=== PATIENT | male | born 1945 | race Hispanic/Latino ===

== ENCOUNTER 2018-04-15 11:37 | Emergency (ER) | payer OTHER ==
[~2018-04-15] VITALS: Ht 172.7 cm; Wt 83.5 kg
[~2018-04-15 11:37] MED LIST: KEFLEX500 MG PO; LISINOPRIL PO; METFORMIN PO; MULTI-VITAMIN1 EACH PO; NORCO 7.5-3251 EACH PO; TYLENOL WITH C1 EACH PO
[2018-04-15 14:26] VITALS: BP 167/78
== END 2018-04-15 14:30 | disposition home or self-care (01) ==
LOC: ER 11:37
DX: B02.9 Zoster without complications (principal); B02.29 Other postherpetic nervous system involvement
CPT/HCPCS: 99282

== ENCOUNTER 2020-06-06 08:32 | Inpatient (IN) | payer OTHER ==
[~2020-06-06] VITALS: Ht 170.2 cm; Wt 85.7 kg
[2020-06-06] MEDS ORDERED: PIPERACILLIN/TAZO 4.5 GM 100 ML IV STA (08:39)
--- NOTE | 2020-06-06 08:43 | Emergency Department Note ---
History of Present Illnes History of Present Illness Chief Complaint: COVID PUI History of Present Illness This is a 75 year old male presents to the ED for SOB and low BP per daughter of 2 days duration. . Arrival Mode: Car History limited by: language barrier Websphere Consultant Required: Yes Onset (how long ago): day(s) (2) Duration (how long): day(s) Timing of current episode: constant Progression: worsening Chronicity: new Context: Reports recent illness Relieving factors: other Exacerbating factors: other Associated symptoms: Reports shortness of breath, Reports weakness, Reports other Treatments prior to arrival: none Previous service: tests performed, re-evaluation Past Medical/Family History Physician Review I have reviewed the patient's past medical and family history. Any updates have been documented here. Past Medical History Clinical Suspicion of Infectio: Yes New/Unexplained Change in Ment: No Past Medical History: None Past Surgical History: Hernia Repair Other Surgery: Hernia Repair Social History Smoking Cessation: Never Smoker Alcohol Use: None Any Illegal Drug Use: No Other Last Tetanus: UNK Review of Systems ROS Narrative Unable to obtain ROS: critical patient Review of Systems Constitutional: Reports weakness EENTM: Reports no symptoms Cardiovascular: Reports no symptoms Respiratory: Reports dyspnea Gastrointestinal: Reports no symptoms Genitourinary: Reports no symptoms Musculoskeletal: Reports no symptoms Integumentary: Reports no symptoms Neurological: Reports no symptoms Psychological: Reports no symptoms Endocrine: Reports no symptoms Hematological/Lymphatic: Reports no symptoms Physical Exam Related Data Allergies: Coded Allergies: naloxegol (Verified Allergy, Unknown, 06/06/20) rash/hives Vital signs reviewed: Yes Physical Exam CONSTITUTIONAL Constitutional: Present distressed, Present ill appearing HENT HENT: Present normocephalic, Present atraumatic, Present oropharynx clear/moist, Present nose normal HENT L/R: Present left ext ear normal, Present right ext ear normal EYES Eyes: Reports PERRL, Reports conjunctivae normal NECK Neck: Present ROM normal PULMONARY Pulmonary: Present other (decreased BS b/l, tachypnea) CARDIOVASCULAR Cardiovascular: Present heart sounds normal, Present capillary refill normal, Present normal rate, Present tachycardia GASTROINTESTINAL Abdominal: Present soft, Present nontender, Present bowel sounds normal GENITOURINARY Genitourinary: Present exam deferred SKIN Skin: Present warm, Present dry MUSCULOSKELETAL Musculoskeletal: Present ROM normal NEUROLOGICAL Neurological: Present alert, Present oriented x 3, Present no gross motor or sensory deficits PSYCHOLOGICAL Psychological: Present mood/affect normal, Present judgement normal Procedures 12 Lead ECG Interpretation ECG Interpretation : ECG: ECG 1 Websphere Consultant: Interpreted by ED physician Date: Jun 06, 2020 Time: 09:23 Rhythm: sinus tachycardia Ectopy: PVC's Rate: tachycardia BPM: 110 Conduction: right bundle branch block ST segments normal: Yes T waves normal: Yes Other findings: no other findings Critical Care Time Total Critical Care Time (min): 31 Critcal care necessary due to: sepsis, shock Critcal care time spent by me: develop tx plan w patient/surrogate, discussion w primary provider, evaluation patient response to tx, examination of patient, obtaining hx from patient/surrogate, order/perform tx or interventions, order/review laboratory studies, order/review radiographic studies, pulse oximetry, re-evaluation of patient condition, review of old charts Assessment & Plan Medical Decision Making MDM 75 yom presents presents with signs and symptoms concerning for sepsis . Blood cx x 2 and blood cx ordered with abx given. Lactic acid obtained and reviewed During the COVID-19 virus pandemic and has a clinical picture consistent with a COVID-19 source for sepsis. Thus, patient was treated for suspected viral sepsis rather than bacterial sepsis. Given the potential for ARDS and present suggestions of early data from COVID treatment in other areas, fluids were given sparingly and the SEP-1 guidelines were deviated from. For consideration of other sources, blood and urine cultures, lactic acid and antibiotics were ordered. Will continue to monitor blood pressure and adjust fluid resuscitation according Reassessment Reassessment time: 10:08 Reassessment Patient resting comfortably. WOB markedly improving with RR at 20 and MAP at 67 mmHG Assessment & Plan Final Impression: (1) Severe sepsis (2) Hypoxia (3) Pneumonia (4) CHF (congestive heart failure) (5) Renal insufficiency (6) Hypokalemia Depart Disposition: ADMITTED Home Meds Reported Medications Diphenhydramine Hcl (BENADRYL) 25 Mg Capsule, 25 MG PO Q6H PRN for ITCHING 06/06/20 Ferrous Sulfate (FERROUS SULFATE) 325 Mg Tablet, 1 TAB PO DAILY 06/06/20 Cholecalciferol (Vitamin D3) (Vitamin D3) 250 Mcg Capsule, 1 CAP PO UD 06/06/20 Tramadol Hcl* (ULTRAM 50MG*) 50 Mg Tab, 100 MG PO Q6H PRN for MODERATE PAIN (4- 6), TAB 06/06/20 Amlodipine Besylate (AMLODIPINE BESYLATE) 5 Mg Tablet, 5 MG PO DAILY, #30 TAB 06/06/20 Levothyroxine Sodium (LEVOTHYROXINE SODIUM) 150 Mcg Tablet, 1 TAB PO QAM 06/06/20 Pregabalin (LYRICA) 50 Mg Cap, 150 MG PO TID, CAP 06/06/20 Omeprazole (OMEPRAZOLE) 40 Mg Capsule.dr, 40 MG PO DAILY 06/06/20 Atorvastatin Calcium (ATORVASTATIN CALCIUM) 40 Mg Tablet, 40 MG PO HS, #30 TAB 06/06/20 Gabapentin (GABAPENTIN) 600 Mg Tablet, 2 TID 06/06/20 Multivitamin (MULTI-VITAMIN DAILY) 1 Each Tablet, PO DAILY 02/11/17 [Metformin] No Conflict Check, 500 MG PO DAILY 05/14/15 Discontinued Reported Medications Cephalexin Monohydrate (KEFLEX) 500 Mg Capsule, 500 MG PO DAILY, #15 02/13/17 Acetaminophen With Codeine (TYLENOL WITH CODEINE #3 TABLET) 1 Each Tablet, 300 M G PO Q4HR PRN for PAIN, TAB 02/13/17 Hydrocodone Bit/Acetaminophen ([place] 7.5-325 TABLET) 1 Each Tablet, 1 EA PO Q6H PRN for PAIN, TAB 05/18/15 [Lisinopril] No Conflict Check, 5 MG PO DAILY 05/14/15 ROC ELLER DO Jun 06, 2020 08:43
[2020-06-06] MEDS ORDERED: GABAPENTIN600 MG (09:03)
[2020-06-06] MEDS ORDERED: ATORVASTATIN CA40 MG PO (09:03)
[2020-06-06] MEDS ORDERED: OMEPRAZOLE40 MG PO (09:03)
[2020-06-06] MEDS ORDERED: LYRICA50 MG PO (09:03)
[2020-06-06] MEDS ORDERED: AMLODIPINE BESYL5 MG PO (09:03)
[2020-06-06] MEDS ORDERED: LEVOTHYROXINE150 MCG PO (09:03)
[2020-06-06 09:05] LABS: BASOPHILS # (AUTO) 0.2 (0.0-0.1); BASOPHILS % 0.8 % (0.0-1.0); EOSINOPHILS # (AUTO) 2.9 (0.0-0.4); EOSINOPHILS % 11.8 % (0.0-6.0); HEMATOCRIT 35.3 % (38.2-49.6); LYMPHOCYTES # (AUTO) 2.6 (1.0-3.2); LYMPHOCYTES % 10.7 % (18.0-39.1); MEAN CORPUSCULAR HEMOGLOBIN 31.3 pg (28-32); MEAN CORPUSCULAR VOLUME 92.2 fL (81-99); MONOCYTES # (AUTO) 1.5 (0.2-0.8); MONOCYTES % 6.3 % (4.4-11.3); NEUTROPHILS # (AUTO) 15.5 (2.1-6.9); NEUTROPHILS % 63.3 % (38.7-80.0); PLATELET COUNT 256 x10e3/uL (140-360); RED BLOOD COUNT 3.83 x10e6/uL (4.3-5.7); RED CELL DISTRIBUTION WIDTH 14.6 % (11.7-14.4)
--- OUTSIDE RECORDS SUMMARY | 2020-06-06 09:06 | XMS REPORT | Continuity of Care Document ---
Author Author [facility] Organization [facility] Address [address] [place] [address] Phone Unavailable Care Team Providers Care Core Analyst Name Role Phone PHANI ADAIR, KACY PCP Krysten MANNING Attphys Unavailable Payers Payer Name Policy Type Policy Number Effective Date Expiration Date Rebeca Gray [id number] 2018 00:00:00 [facility] Problems Condition Name Condition Details Condition Category Status Onset Date Resolution Date Last Treatment Date Treating Clinician Comments Source Avulsion injury Avulsion injury Problem [facility] Laceration of left ring finger without foreign body wi thout damage to nail Laceration of left ring finger w/o foreign body w/o damage to nail Problem [facility] Laceration of left middle finger with complication Lac eration of left middle finger with complication Problem [facility] Allergies, Adverse Reactions, Alerts This patient has no known allergies or adverse reactions. Medications Ordered Medication Name Filled Medication Name Start Date Stop Da te Current Medication? Ordering Clinician Indication Dosage Frequency Signature (SIG) Comments Components Source Acetaminophen With Codeine (Tylenol With Codeine #3 Ta blet) 1 Each Tablet Acetaminophen With Codeine (Tylenol With Codeine #3 Tablet) 1 Each Tablet Yes 300 Every 4 Hours as needed for Pain [facility] Cephalexin Monohydrate (Keflex) 500 Mg Capsule Cephale daisha Monohydrate (Keflex) 500 Mg Capsule Yes 500 Daily [facility] Hydrocodone Bit/Acetaminophen ([place] 7.5-325 Tablet) 1 Each Tablet Hydrocodone Bit/Acetaminophen ([place] 7.5-325 Tablet) 1 Each Tablet Yes 1 Every 6 Hours as needed for Pain [facility] Lisinopril Lisinopril Yes 5 Daily [facility] Metformin Metformin Yes 500 Daily [facility] Multivitamin (Multi-Vitamin Daily) 1 Each Tablet Multi vitamin (Multi-Vitamin Daily) 1 Each Tablet Yes Daily [facility] Procedures This patient has no known procedures. Encounters Start Date/Time End Date/Time Encounter Type Admission Type Attendi [facility] Care Department Encounter ID Source 2018-04-15 11:37:00 2018-04-15 14:30:00 Departed Emergency Room [facility] [id number] [facility] 2017-08-30 14:39:00 2017-08-30 16:53:00 Departed Emergency Room ER SALLIE MANNING [facility] [id number] [facility] Results Test Description Test Time Test Comments Results Result Comments Source HAND LEFT 2 VIEWS [place] [address] Patient Name: KARLO RUBIO MR #: [id number] : 1945 Age/Sex: 72/M Req #: [id number] Adm Physician: Ordered by: SALLIE MANNING MD Report #: [id number] Location: ER Room/Bed: Procedure: [id number] DX/HAND LEFT 2 VIEWS Exam Date: 08/30/17 Exam Time: 1545 REPORT STATUS: Signed PROCEDURE: HAND LEFT 2 VIEWS AP T LAT COMPARISON: None. INDICATIONS: LACERATION TO DISTAL FINGERS FINDINGS: Questionable cortical step off in the ulnar aspect of the distal tuft of the fourth finger in area of laceration, which may represent an acute fracture. The other bony structures are intact. Linear lucency traversing the distal aspect of the fourth finger soft tissues, likely represents the known laceration. Other soft tissues are unremarkable. Subluxation of the third finger, metacarpal phalangeal joint. Degenerative changes in the first carpometacarpal joint and distal interphalangeal joints, likely reflecting osteoarthritis. CONCLUSION: Questionable cortical step-off in the ulnar aspect of the distal tuft of the fourth finger, which may represent an acute fracture. There is an overlying linear laceration of the distal aspect of the fourth finger with Ken Liang M.D. Dictated by: Ken Liang M.D. on 08/30/2017 at 16:33 Electronically approved by: Ken Liang M.D. on 08/30/2017 at 16:33 Dictated By: KEN LIANG MD [id number] Transcribed By: DRU on 08/30/17 1633 COPY TO: SALLIE MANNING MD
--- NOTE | 2020-06-06 09:11 | NUR ---
green sheet on chart per protocol.
[2020-06-06] MEDS ORDERED: SODIUM CHLORIDE 0.9% 1000ML 1,000 ML IV SCH (09:15)
[2020-06-06 09:23] LABS: ALBUMIN 2.6 g/dL (3.5-5.0); ALBUMIN/GLOBULIN RATIO 0.5 (0.8-2.0); ANION GAP 18.3 mmol/L (8-16); CALCIUM 9.9 mg/dL (8.4-10.2); CREATININE, SERUM 1.83 mg/dL (0.72-1.25); POTASSIUM 3.3 mmol/L (3.5-5.1)
[2020-06-06 09:34] LABS: CREATINE KINASE MB 6.3 ng/mL (0-5.0)
--- NOTE | 2020-06-06 09:35 | Diagnostic Imaging Report ---
TECHNIQUE: Frontal view of the chest. INDICATION: ^Y ^ERMD ORDER ^[id number] ^0905 ^Y COMPARISON: 07/10/2010 DISCUSSION: Limited evaluation due to portable technique. Lines and hardware: Overlying EKG leads are noted. Heart and mediastinum: Cardiomedial sinus silhouette is enlarged. Central vascular congestion is noted. Lungs and pleura: Prominent interstitial markings are noted diffusely. Ill-defined opacity at the left lung base may relate to atelectasis or developing consolidation. Negative for large pneumothorax or effusion Soft tissues and bones: No acute abnormality. IMPRESSION: 1. Cardiomegaly, vascular congestion and prominent interstitial markings probably relate to fluid overload/early pulmonary edema. 2. Left basilar streaky opacities may relate to atelectasis and/or small effusion. Developing consolidation is difficult to exclude given lack of recent comparison imaging. Signed by: Uli Dent MD on 06/06/2020 9:32 AM
[2020-06-06 09:58] LABS: B-TYPE NATRIURETIC PEPTIDE2 72.5 pg/mL (0-100)
--- OUTSIDE RECORDS SUMMARY | 2020-06-06 10:29 | XMS REPORT | Continuity of Care Document ---
Author Author [facility] Organization [facility] Address [address] [place] [address] Phone Unavailable Care Team Providers Care Suction Roller Name Role Phone KACY JERONIMO MD PCP ROC ELLER Attphys Unavailable Krysten MANNING Attphys Unavailable CONSTANTIN SPENCER Admphys Unavailable Payers Payer Name Policy Type Policy Number Effective Date Expiration Date Rebeca Gray [id number] 2018 00:00:00 [facility] Problems Condition Name Condition Details Condition Category Status Onset Date Resolution Date Last Treatment Date Treating Clinician Comments Source Avulsion injury Avulsion injury Problem [facility] Laceration of left ring finger without foreign body wi thout damage to nail Laceration of left ring finger w/o foreign body w/o damage to nail Problem [facility] Laceration of left middle finger with complication Lac eration of left middle finger with complication Problem [facility] Allergies, Adverse Reactions, Alerts This patient has [...] Every 4 Hours as needed for Pain [facility] Cephalexin Monohydrate (Keflex) 500 Mg Capsule Cephale daisha Monohydrate (Keflex) 500 Mg Capsule Yes 500 Daily [facility] Hydrocodone Bit/Acetaminophen ([place] 7.5-325 Tablet) 1 Each Tablet Hydrocodone Bit/Acetaminophen ([place] 7.5-325 Tablet) 1 Each Tablet Yes 1 Every 6 Hours as needed for Pain [facility] Lisinopril Lisinopril Yes 5 Daily [facility] Metformin Metformin Yes 500 Daily [facility] Multivitamin (Multi-Vitamin Daily) 1 Each Tablet Multi vitamin (Multi-Vitamin Daily) 1 Each Tablet Yes Daily [facility] Procedures This patient has no known procedures. Encounters Start Date/Time End Date/Time Encounter Type Admission Type Attendi [facility] Care Department Encounter ID Source 2018-04-15 11:37:00 2018-04-15 14:30:00 Departed Emergency Room [facility] [id number] [facility] 2017-08-30 14:39:00 2017-08-30 16:53:00 Departed Emergency Room ER SALLIE MANNING [facility] [id number] [facility] Results Test Description Test Time Test Comments Results Result Comments Source CHEST SINGLE (PORTABLE) 2020-06-06 09:30:00 [place] [address] Patient Name: KARLO RUBIO MR #: [id number] : 1945 Age/Sex: 75/M Req #: [id number] Adm Physician: Ordered by: ROC ELLER DO Report #: [id number] Location: ER Room/Bed: Procedure: [id number] DX/CHEST SINGLE (PORTABLE) Exam Date: 06/06/20 Exam Time: 904 REPORT STATUS: Signed TECHNIQUE: Frontal view of the chest. INDICATION: Y ERMD ORDER [id number] 0905 Y COMPARISON: 07/10/2010 DISCUSSION: Limited evaluation due to portable technique. Lines and hardware: Overlying EKG leads are noted. Heart and mediastinum: Cardiomedial sinus silhouette is enlarged. Central vascular congestion is noted. Lungs and pleura: Prominent interstitial markings are noted diffusely. Ill-defined opacity at the left lung base may relate to atelectasis or developing consolidation. Negative for large pneumothorax or effusion Soft tissues and bones: No acute abnormality. IMPRESSION: 1. Cardiomegaly, vascular congestion and prominent interstitial markings probably relate to fluid overload/early pulmonary edema. 2. Left basilar streaky opacities may relate to atelectasis and/or small effusion. Developing c onsolidation is difficult to exclude given lack of recent comparison imaging. Signed by: Lissa Dent MD on 06/06/2020 9:32 AM Dictated By: LISSA DENT MD 1 Transcribed By: ALEXANDRA on 06/06/20931 COPY TO: ROC ELLER DO HAND LEFT 2 VIEWS [place] [address] Patient Name: KARLO RUBIO MR #: [id number] : 1945 Age/Sex: 72/M Req #: [id number] Adm Physician: Ordered by: SALLIE MANNING MD Report #: [id number] Location: ER Room/Bed: Procedure: [id number] DX/HAND LEFT 2 VIEWS Exam Date: 08/30/17 Exam Time: 5 REPORT STATUS: Signed PROCEDURE: HAND LEFT 2 [...] at 16:33 Dictated By: KEN LIANG MD [id number] Transcribed By: DRU on 08/30/17 9703 COPY TO: SALLIE MANNING MD
[2020-06-06] MEDS ORDERED: VANCOMYCIN 1GM/NS 250 ML 250 ML IV ONE (10:30)
[2020-06-06 10:47] LABS: EOSINOPHILS % (MANUAL) 14 % (0-7); LYMPHOCYTES % (MANUAL) 11 % (19-48); MONOCYTES % (MANUAL) 10 % (3.4-9.0); MYELOCYTES % (MANUAL) 2 % (0-0); NEUTROPHILS % (MANUAL) 63 % (40-74); PLATELET ESTIMATE ADEQUATE; PLATELET MORPHOLOGY COMMENT NORMAL; RBC MORPHOLOGY COMMENT NORMAL
--- NOTE | 2020-06-06 11:32 | Consultation ---
DATE OF CONSULTATION: Pulmonary/Critical Care Consultation REASON FOR CONSULT: Shortness of breath. HISTORY OF PRESENT ILLNESS: Mr. Stubbs is a 75-year-old male. The patient is having progressive worsening of shortness of breath for last 2 days. According to the ER physician, the patient's daughter told him that the COVID test was negative 2 weeks ago, and the patient has been doing well. The patient is [place] speaking. I talked to the patient with the help of field party manager. He reports that he was having coughing and shortness of breath. He denies any nausea or vomiting. He has a history of diabetes and hypertension. REVIEW OF SYSTEMS: GENERAL: He was possibly having fever. HEAD: Denies any head trauma. ENT: Denies any earache. CVS: Denies any chest pain. RESPIRATORY: Shortness of breath. The rest of the review of systems are negative except as in HPI. PAST MEDICAL HISTORY: Diabetes. FAMILY AND SOCIAL HISTORY: He does not smoke, does not drink. PHYSICAL EXAMINATION: VITAL SIGNS: Temperature 99.1, pulse of 106, blood pressure 128/58. CHEST: Reduced air entry bilaterally. Good effort. HEART: S1 and S2 audible. ABDOMEN: Soft, nontender. EXTREMITIES: Trace pedal edema. NEUROLOGICAL: He is awake and alert. LABORATORY DATA: White count of 24,000, hemoglobin 12.0, platelets 256. Chemistry; sodium 137, potassium 3.3, chloride 107, BUN 43, creatinine 1.83, and lactic acid 3.3. AST, ALT on the higher side. Chest x-ray, I have reviewed the images. It is showing increased congestion, possibly right middle lobe infiltrate and vascular congestion. ASSESSMENT AND PLAN: Mr. Stubbs is a 75-year-old male, who is admitted with severe sepsis. Lactic acid is 3.3. Possible source is pneumonia. The patient has received IV Zosyn in the emergency room. I will give a dose of vancomycin. Creatinine is 1.8. He is getting IV fluids. Blood cultures have been sent. Hopefully, he will respond to fluids, otherwise the patient will need vasopressors. Critical care time spent 40 minutes. Thank you for this consult. MD RHETT Lazo/MODL /[id number]
--- NOTE | 2020-06-06 14:31 | NUR ---
Received patient via wheelchair from ER. AAOx2 to person, time, periods of confusion. Respirations even and unlabored. O2 3L NC. Oriented patient to room. Instructed to use call light for assistance. Side rails upx2, call light within reach, bed alarm on.
[2020-06-06 15:02] VITALS: BP 109/57
[2020-06-06] MEDS ORDERED: BENADRYL25 M1 PO (15:23)
[2020-06-06] MEDS ORDERED: ULTRAM 50MG50 MG PO (15:23)
[2020-06-06] MEDS ORDERED: VITAMIN D3250 MC1 PO (15:23)
[2020-06-06] MEDS ORDERED: FERROUS SULFAT325 MG PO (15:23)
[2020-06-06 16:13] VITALS: BP 109/57
[2020-06-06] MEDS ORDERED: DEXTROSE 50% SYRINGE 50 ML IV PRN (17:30)
[2020-06-06 17:46] LABS: CREATINE KINASE MB 3.3 ng/mL (0-5.0)
[2020-06-06 17:50] LABS: ABG HCO3 18 mmol/L (22-26); ABG PCO2 29 mmHg (35-45); ABG PO2 88 mmHg (80-105); ABG TCO2 19
[2020-06-06] MEDS: AZITHROMYCIN 500MG/NS 250 ML 250 ML IV SCH (17:59)
[2020-06-06 18:12] VITALS: BP 109/57
--- NOTE | 2020-06-06 19:03 | Diagnostic Imaging Report ---
CT chest without enhancement CPT code: 31342 INDICATION: Shortness of breath, CHF TECHNIQUE: Thin collimation axial images obtained from the thoracic inlet to the level of the diaphragm without intravenous contrast. Dose reduction techniques used: Automated exposure control, adjustment of the mAs and/or kVp according to patient size, standardized low-dose protocol, and/or iterative reconstruction technique. RADIATION DOSE: Total DLP: 569.3 mGy*cm Estimated effective dose: (DLP x 0.015 x size factor) mSv CTDIvol has been reviewed. It is below the limits set by the Radiation Protocol Committee (RPC). COMPARISON: Chest x-ray 0905 hours. CHEST FINDINGS: Lymph nodes: Right and left axillary lymph nodes are enlarged. Right axillary lymph node measures 1.5 x 1.8 cm. Left axillary lymph node measures 1.1 cm. There are multiple prominent supraclavicular lymph nodes. For example, a left supra clavicular lymph node measures 1.3 x 1.6 cm. Mediastinal lymph nodes are prominent. A lymph node in the AP window measures 2.2 x 1.5 cm. Precarinal lymph node measures 1.6 x 2.1 cm. Subcarinal lymph node measures 1.5 cm in AP dimension. The left of intravenous contrast limits evaluation of the griselda for lymphadenopathy. Thyroid: Atrophic. Visualized portions demonstrate no evidence of nodule. Mediastinum: The heart is enlarged. Trace pericardial effusion. The esophagus is normal. The ascending aorta measures 3.3 cm. The main pulmonary artery measures 2.7 cm. Atherosclerotic calcifications of the aorta and heart and arteries. Lungs: Right: Diffuse hyperinflation and mild apical pleural parenchymal thickening. Subsegmental atelectasis in the middle and lower lobes and posterior aspect of the upper lobe. No confluent infiltrate. No interstitial edema. Noncalcified nodules along the minor fissure measure 0.9 cm and 0.5 cm. Left: Diffuse hyperinflation and mild apical pleural-parenchymal thickening. Subsegmental atelectasis, particularly the posterior lower lobe. No confluent infiltrates. No interstitial edema. Airways: Clear Pleura: No pleural effusion or pleural-based mass. ABDOMEN FINDINGS: The liver is mildly decreased in attenuation suggestive of steatosis. Low attenuating lesions in the left and right lobes, the largest measuring 7 mm, too small to characterize. Visualized portions of the pancreas are normal. The spleen is normal in size with a subcapsular calcification in the posterior aspect The gallbladder is present and appears normal. No abnormalities of the visualized portions of the adrenal glands or kidneys. There are calcifications of the aorta, renal arteries, celiac artery, and SMA. There are prominent upper abdominal lymph nodes, particularly in the sonja hepatis. Bones: Mild degenerative changes of the spine. No focal osseous lesions. Soft tissues: Unremarkable. IMPRESSION: 1. No CT evidence of CHF. 2. Diffuse lymphadenopathy in the chest, lower neck, and upper abdomen of uncertain significance. 3. Bilateral subsegmental atelectasis. Diffuse pulmonary hyperinflation suggestive of small airways disease. 4. Cardiomegaly. Atherosclerosis. 5. Steatosis. Low attenuating hepatic lesions are too small to characterize. Signed by: Dr. Joaquin Neff MD on 06/06/2020 7:00 PM
--- NOTE | 2020-06-06 19:10 | NUR ---
Received the patient in report.sleeping in the bed. no pain voiced. stable condition.
[2020-06-06 20:00] VITALS: BP 119/64
[2020-06-06] MEDS ORDERED: CEFTRIAXONE SOD 1 GM/NS 50 ML 50 ML IV SCH (20:00)
[2020-06-06 21:00] VITALS: BP 119/64
[2020-06-06] MEDS ORDERED: PREGABALIN 50 MG CAP PO SCH (21:00)
[2020-06-06] MEDS ORDERED: NON-FORMULARY MEDICATION (Atorvastatin Calcium 40 MG) PO SCH (21:00)
[2020-06-06] MEDS: INSULIN LISPRO 100 UNIT/1 ML 3ML VIAL SQ SCH (21:00)
--- NOTE | 2020-06-06 21:00 | NUR ---
urine sen to the lab.
[2020-06-06 21:02] LABS: CLARITY,URINE SL CLOUDY (CLEAR); COLOR,URINE STRAW (YELLOW)
[2020-06-06 21:03] LABS: BILIRUBIN,URINE NEGATIVE (NEGATIVE); KETONES,URINE NEGATIVE (NEGATIVE); LEUKOCYTE ESTERASE ,URINE SMALL (NEGATIVE); NITRITE,URINE NEGATIVE (NEGATIVE); PROTEIN,URINE DIPSTICK 1+ (NEGATIVE); URINE UROBILINOGEN 1 mg/dL (0.2 - 1)
[2020-06-06] MEDS: ATORVASTATIN 40 MG TAB PO SCH (21:10)
[2020-06-06] MEDS: PREGABALIN 75 MG CAP PO SCH (21:15)
[2020-06-06 21:27] LABS: BACTERIA,URINE MODERATE /HPF
[2020-06-07] VITALS (13 sets, daily range): BP systolic 85–163; BP diastolic 58–77
--- NOTE | 2020-06-07 01:23 | NUR ---
Blood everette and sent to the lab for cardiac markers.
--- NOTE | 2020-06-07 02:00 | NUR ---
Resting in the bed.phone and call light within reach.instructed to call for assistance as needed.
[2020-06-07] MEDS: LEVOTHYROXINE SODIUM 50 MCG TAB PO SCH (05:38)
[2020-06-07 06:15] LABS: BASOPHILS # (AUTO) 0.2 (0.0-0.1); BASOPHILS % 0.6 % (0.0-1.0); EOSINOPHILS % 10.7 % (0.0-6.0); HEMATOCRIT 35.1 % (38.2-49.6); HEMOGLOBIN 11.5 g/dL (14.0-18.0); LYMPHOCYTES # (AUTO) 4.1 (1.0-3.2); MEAN CORPUSCULAR HGB CONC 32.8 g/dL (31-35); MEAN CORPUSCULAR VOLUME 94.6 fL (81-99); MONOCYTES # (AUTO) 1.5 (0.2-0.8); MONOCYTES % 5.3 % (4.4-11.3); NEUTROPHILS # (AUTO) 17.1 (2.1-6.9); NEUTROPHILS % 62.2 % (38.7-80.0); RED BLOOD COUNT 3.71 x10e6/uL (4.3-5.7)
[2020-06-07 06:20] LABS: PLATELET COUNT 135 x10e3/uL (140-360)
[2020-06-07 06:21] LABS: ALBUMIN 2.2 g/dL (3.5-5.0); ALBUMIN/GLOBULIN RATIO 0.5 (0.8-2.0); ANION GAP 14.5 mmol/L (8-16); CREATININE, SERUM 2.01 mg/dL (0.72-1.25); POTASSIUM 3.5 mmol/L (3.5-5.1)
--- NOTE | 2020-06-07 07:08 | NUR ---
Bed side shift report given to oncoming Rn.stable condition.resting now.
[2020-06-07 07:15] LABS: ANISOCYTOSIS SLIGHT; BAND NEUTROPHILS % (MANUAL) 1 %; EOSINOPHILS % (MANUAL) 18 % (0-7); LYMPHOCYTES % (MANUAL) 20 % (19-48); METAMYELOCYTES % (MANUAL) 1 % (0-0); MONOCYTES % (MANUAL) 6 % (3.4-9.0); MYELOCYTES % (MANUAL) 3 % (0-0); NEUTROPHILS % (MANUAL) 51 % (40-74); PLATELET ESTIMATE SLIGHTLY DECREASED; PLATELET MORPHOLOGY COMMENT RARE EDTA CLUMPING; RBC MORPHOLOGY COMMENT NORMAL
[2020-06-07] MEDS: INSULIN LISPRO 100 UNIT/1 ML 3ML VIAL SQ SCH ×4 (07:30→21:57)
--- NOTE | 2020-06-07 08:55 | Diagnostic Imaging Report ---
EXAMINATION: CHEST SINGLE (PORTABLE) INDICATION: Shortness of breath COMPARISON: Chest radiograph and chest CT of 06/06/2020 FINDINGS: LINES/TUBES:EKG leads overlie the chest. LUNGS:The lungs are moderately inflated. There is left basilar opacity silhouetting the left sanjana diaphragm. PLEURA:No pleural effusion or pneumothorax. MEDIASTINUM:Cardiomediastinal silhouette is unchanged. BONES/SOFT TISSUES:No acute osseous injury. ABDOMEN:No free air under the diaphragm. IMPRESSION: Left basilar opacities correspond with subsegmental atelectasis on CT of the prior day. Signed by: Pacheco Dow MD on 06/07/2020 8:52 AM
[2020-06-07] MEDS ORDERED: AMLODIPINE BESYLATE 5 MG TAB PO SCH (09:00)
[2020-06-07] MEDS: PANTOPRAZOLE SOD 40 MG TABEC PO SCH (09:07)
[2020-06-07] MEDS: PREGABALIN 75 MG CAP PO SCH (09:07)
[2020-06-07] MEDS: SODIUM CHLORIDE 0.9% 1000ML 1,000 ML IV SCH ×3 (10:45→18:32)
--- NOTE | 2020-06-07 11:12 | NUR ---
Post void residual shows 378mL
[2020-06-07] MEDS: ALBUTEROL/IPRATROPIUM 3 ML NEB NEB SCH ×2 (13:40→19:00)
[2020-06-07] MEDS: BUDESONIDE 0.25 MG/2 ML NEB NEB SCH ×2 (13:40→19:00)
--- NOTE | 2020-06-07 14:02 | NUR ---
Telemetry reported patient to be in AFIB RVR with rate fluctuating in the 150's. Paged Dr. Wells for any further orders. Awaiting call back
--- NOTE | 2020-06-07 14:06 | NUR ---
infectious disease consultation note Patient seen and examined chart reviewed Chief complaint shortness of breath Shortness of breath. HISTORY OF PRESENT ILLNESS: Mr. Stubbs is a 75-year-old male. The patient is having progressive worsening of shortness of breath for last 2 days.the patient was evaluated in emergency room he comes here because of shortness of breath he was admitted severely seen by pulmonary According to the ER physician, the patient's daughter told him that the COVID test was negative 2 weeks ago, and the patient has been doing well. The patient is Malawian speaking. the patient was seen and examined today I talked to the patient with the help of medical education coordinator. He reports that he was having coughing and shortness of breath. He denies any nausea or vomiting. He has a history of diabetes and hypertension. REVIEW OF SYSTEMS: GENERAL: He was possibly having fever. HEAD: Denies any head trauma. ENT: Denies any earache. CVS: Denies any chest pain. RESPIRATORY: Shortness of breath. The rest of the review of systems are negative except as in HPI. PAST MEDICAL HISTORY: Diabetes. FAMILY AND SOCIAL HISTORY: He does not smoke, does not drink. PHYSICAL EXAMINATION: patient is currently alert oriented does not seem to be in acute distress but he is short of breath his vitals stable afebrile VITAL SIGNS: Temperature 99.1, pulse of 106, blood pressure 128/58. CHEST: Reduced air entry bilaterally. Good effort. HEART: S1 and S2 audible. ABDOMEN: Soft, nontender. EXTREMITIES: Trace pedal edema. moving all extremities NEUROLOGICAL: He is awake and alert.neuro nonfocal LABORATORY DATA: White count of 24,000, hemoglobin 12.0, platelets 256. Chemistry; sodium 137, potassium 3.3, chloride 107, BUN 43, creatinine 1.83, and lactic acid 3.3. AST, ALT on the higher side. Chest x-ray, I have reviewed the images. . No CT evidence of CHF. 2. Diffuse lymphadenopathy in the chest, lower neck, and upper abdomen of uncertain significance. 3. Bilateral subsegmental atelectasis. Diffuse pulmonary hyperinflation suggestive of small airways disease. 4. Cardiomegaly. Atherosclerosis. 5. Steatosis. Low attenuating hepatic lesions are too small to characterize. Impression sepsis on admission pneumonia on admission community-acquired acute on chronic kidney disease diabetes mellitus respiratory failure recommendation Rocephin 1 g daily Zyvox 6 mg every 12 recheck CBC recheck in panel with a blood cultures urine cultures were obtained urine for Legionella serology for chlamydia mycoplasma is good but 19 has been negative we will check HIV also will follow with you
--- NOTE | 2020-06-07 14:28 | Diagnostic Imaging Report ---
EXAM: CT Abdomen and Pelvis WITHOUT intravenous contrast INDICATION: Abdominal distention COMPARISON: Chest radiograph earlier the same day TECHNIQUE: Abdomen and pelvis were scanned utilizing a multidetector helical scanner from the lung base to the pubic symphysis without administration of IV contrast. Coronal and sagittal reformations were obtained. IV CONTRAST: None ORAL CONTRAST: Water COMPLICATIONS: None RADIATION DOSE: Total DLP: 576 mGy*cm Dose modulation, iterative reconstruction, and/or weight based adjustment of the mA/kV was utilized to reduce the radiation dose to as low as reasonably achievable. FINDINGS: LOWER THORAX: Dependent lower lobe subsegmental atelectasis. No focal lung base consolidation. HEPATOBILIARY: Diffuse hepatic steatosis. Subcentimeter segment 6 and 7 of liver hypodensities, most likely cysts. No other focal liver lesions. Unremarkable gallbladder. SPLEEN: No splenomegaly. PANCREAS: No focal masses or ductal dilatation. ADRENALS: No adrenal nodules. KIDNEYS/URETERS: No hydronephrosis, renal calculi, or solid renal mass lesion. Left renal cysts measure up to 1.6 cm. PELVIC ORGANS/BLADDER: Monreal catheter in the bladder. Enlarged prostate measures up to 5.2 x 4.3 x 5.0 cm (volume estimate of 59 cc). PERITONEUM / RETROPERITONEUM: No free air or fluid. LYMPH NODES: No lymphadenopathy. VESSELS: Moderate atherosclerotic calcifications of the nonaneurysmal abdominal aorta and major branches. GI TRACT: No abnormal bowel thickening. No bowel obstruction. BONES AND SOFT TISSUES: No acute osseous injury. No suspicious lytic or blastic lesions. Degenerative changes of the visualized spine. IMPRESSION: No acute findings in the abdomen or pelvis. Diffuse hepatic steatosis. Prostatomegaly. Signed by: Pacheco Dow MD on 06/07/2020 2:25 PM
[2020-06-07] MEDS: METHYLPREDNISOLONE SOD SUCC 40 MG/ML VIAL 1ML IV SCH ×2 (14:30→22:52)
--- NOTE | 2020-06-07 14:48 | NUR ---
Spoke to TIM Hwang for doctor Vicente Baker and notified her of patient in AFIB RVR. New orders received.
[2020-06-07] MEDS ORDERED: DILTIAZEM HCL 5 MG/ML 5 ML VIAL IV STA ×2 (14:58→15:30)
[2020-06-07] MEDS ORDERED: DILTIAZEM HCL VIAL 5 ML ONE (15:09)
[2020-06-07 15:50] LABS: HIV 1&2 AB SCREEN NON-REACTIVE (NONREACTIVE)
[2020-06-07] MEDS ORDERED: AMIODARONE HCL 150MG 100 ML IV ONE (16:15)
[2020-06-07] MEDS ORDERED: AMIODARONE HCL 900 MG in DEXTROSE 5% 500ML 500 ML IV SCH (16:15)
--- NOTE | 2020-06-07 16:27 | NUR ---
Dr. Krysten Baker is here and said patient needs to go to ICU for AMio drip. Notified Dr. Wells as well.
[2020-06-07] MEDS ORDERED: FUROSEMIDE INJ 10 MG/ML 4 ML VIAL IV ONE (16:30)
--- NOTE | 2020-06-07 16:37 | NUR ---
Report given to ELVIN Aviles in the ICU. Patient is being transferred to room 196
--- NOTE | 2020-06-07 16:59 | History and Physical ---
PRIMARY CARE PHYSICIAN: Landry De La Garza MD. CONSULTANTS: 1. Dr. Andrea Campos. 2. Dr. Vidal Jimenez. The patient was seen in the emergency room. Tests ordered. Antibiotic initiated. Shipping Helper ordered. HISTORY OF PRESENT ILLNESS: The patient is a 75-year-old male, history unreliable since the patient has some confusion at baseline. The patient came to the hospital with increasing shortness of breath. The patient has progressively increased shortness of breath for the past few days. The patient's daughter told him that the COVID test was two weeks ago and the patient has been doing okay. The patient is having some shortness of breath. History is taken through the help with interpretative dancer. He was having increasing cough. He did not have any nausea or vomiting. The patient stating that he is urinating okay. He does have baseline diabetes and hypertension. Renal function, the patient is not aware of problem. In the emergency room, the patient's BUN and creatinine were 43 and 1.83. The patient also has slightly elevation of liver enzymes. The patient's lactic acid level was 3.3, but subsequently 2.0 after IV fluid given. Blood pressure increased after IV fluid as well. The patient has trace lower extremity edema, but otherwise he is stable. Coronavirus PCR was negative x2. The patient is otherwise stable at this time. He is breathing a little bit better. He is not wheezing. The patient is comfortable. PAST MEDICAL HISTORY: COPD on x-ray as was done. Diabetes type 2. Hypertension. Diabetic neuropathy. Chronic anemia. Dyslipidemia. Osteoarthritis. Reflux. Hypothyroidism. PAST SURGICAL HISTORY: Hernia repair. SOCIAL HISTORY: The patient is unreliable, but per medical record, the patient denied current smoking. He is stating that he smoked a long time ago. No alcohol consumption. ALLERGIES: MELOXICAM. HOME MEDICATIONS: On the list available including as follows: The patient takes, 1. Norvasc. 2. Lipitor. 3. Vitamin D3. 4. Ferrous sulfate. 5. Gabapentin. 6. Levothyroxine. 7. Multivitamin. 8. Omeprazole. 9. Lyrica. 10. Tramadol. 11. Metformin. Of note, this list medication may not be accurate given there is double medication in the list. PHYSICAL EXAMINATION: VITAL SIGNS: Temperature is 99.5, blood pressure 128/58, pulse rate was 111 on admission, down to 83 today, and respirations 18. GENERAL: The patient is not in acute distress. He is awake. HEENT: Normocephalic, atraumatic. Sclerae anicteric. NECK: Supple grossly. No JVD. PULMONARY: Diminished breath sounds bilaterally with some rhonchi. No gross wheezing at this time. No rales at the bases. CARDIOVASCULAR: S1, S2. Regular rate and rhythm. ABDOMEN: Soft, obese. EXTREMITIES: No cyanosis. Trace edema. NEUROLOGIC: The patient is awake, alert, moving all extremities. Following instruction and giving history, but slightly confused, but otherwise the patient had no gross focal deficit. LABORATORY DATA: Chemistry; sodium is 137, potassium 3.3, chloride 107, bicarb 15, BUN 43, creatinine 1.8, and glucose 140. Lactic acid was 3.3, then 2nd set is 2.0. AST 40, ALT 84, alkaline phosphatase is 214. WBC was 24.4, hemoglobin 12, hematocrit 35.4, and platelets 256,000. Urinalysis, moderate bacteria with WBC of 20, cloudy urine. Serology was negative for COVID-19. IMAGING TEST: CT scan of the chest showed that the patient had no evidence of congestive heart failure. There is diffuse lymphadenopathy in the chest, lower neck and upper abdomen of the uncertain significance. Bilateral subsegmental atelectasis. Diffuse pulmonary hyperinflation suggestive of small airway disease. Cardiomegaly. Atherosclerosis. Steatosis, low attenuation hepatic lesions are too small to characterize. IMPRESSION: 1. Acute hypoxia could be secondary to exacerbation of the patient hyperinflated lung emphysema/chronic obstructive pulmonary disease. 2. Possible atypical pneumonia associated with low-grade fever and leukocytosis. 3. Possibilities of blood disorder given leukocytosis with diffuse lymphadenopathy. 4. Hypoxia, improving. 5. Possible acute kidney insufficiency versus chronic kidney disease and possible dehydration with increased BUN and creatinine as mentioned above. PLAN: Consultation with mock up maker. Dr. Jimenez and Dr. Campos already consulted yesterday. Continue with antibiotics. Start the patient on normal saline. We will watch for the patient's urine output. We will need to do a urinary bladder scan and needed a Monreal catheter. Resume some home medication and hold other. Insulin sliding scale coverage to watch, make sure that the blood sugar is not elevated. Replace electrolytes if needed. Check electrolytes, hemoglobin A1c, TSH. We will monitor this patient closely at this time and will follow up with the specialist recommendation. MD MELISSA Pineda/TIFFANIE /[id number]
[2020-06-07] MEDS ORDERED: ENOXAPARIN INJ 80 MG/0.8 ML SYR SC SCH (17:00)
[2020-06-07] MEDS: TAMSULOSIN HCL 0.4 MG CAP PO SCH (17:00)
[2020-06-07] MEDS ORDERED: AMIODARONE 900MG 500 ML IV SCH (17:00)
[2020-06-07] MEDS ORDERED: AMIODARONE HCL 100 ML IV ONE (17:00)
--- NOTE | 2020-06-07 17:11 | NUR ---
Patient was transferred to room 196 ICU. Patient's daughter was notified.
[2020-06-07 18:03] LABS: ABG HCO3 16 mmol/L (22-26); ABG PCO2 22 mmHg (35-45); ABG PH 7.47 (7.35-7.45); ABG PO2 75 mmHg (80-105); ABG TCO2 17
--- NOTE | 2020-06-07 18:24 | Consultation ---
DATE OF CONSULTATION: 06/07/2020 Urology consultation REASON FOR CONSULTATION: Acute urinary retention. HISTORY OF PRESENT ILLNESS: Jace Stubbs is a 75-year-old man, who was admitted with severe sepsis. The patient was also diagnosed with urinary tract infection and pneumonia. Postvoid residuals were checked and upon checking the postvoid residuals, they were elevated. The Monreal catheter was placed with 400 mL of urinary retention obtained. The patient is somewhat short of breath and does not really want to discuss his medical history at length at the present time. Most of information is obtained from discussion with the patient's nurse as well as review of the patient's chart. The patient denies previous hematuria and urolithiasis. Denies ever having urological surgery. PAST MEDICAL AND SURGICAL HISTORY: 1. Diabetes. 2. Status post left total knee arthroplasty in 2009. 3. Chronic pain. 4. COPD exacerbation. SOCIAL HISTORY: The patient denies current smoking, ethanol, or drug use. FAMILY HISTORY: Noncontributory to the active urological problems. CURRENT MEDICATIONS: Please refer to the MAR. ALLERGIES: PLEASE REFER TO THE MAR. REVIEW OF SYSTEMS: Discussed as above in history of present illness and past medical history, otherwise negative for all systems. PHYSICAL EXAMINATION: GENERAL: An elderly man, lying in bed, in some degree of shortness of breath, but no true apparent distress. VITAL SIGNS: He is currently afebrile. His vital signs are currently stable, but he has had some atrial fibrillation with rapid ventricular response. ABDOMEN: Soft, nondistended, nontender without costovertebral angle tenderness. Kidneys not palpable without hepatosplenomegaly. No obvious evidence of hernia. GENITOURINARY: Testes are descended bilaterally. Testes and epididymides are nontender. The patient has an uncircumcised male phallus with normal meatus without any lesion. Digital rectal examination is deferred at the present time. There is a Monreal catheter in place, draining clear urine out. For the remaining physical examination systems, please refer the admission history and physical on the chart. LABORATORY STUDIES: CT scan of the abdomen and pelvis showed a left renal cyst. The Monreal catheter is in the bladder and the prostate volume was estimated at 59 mL. Blood culture is pending. White blood cell count is 27,520, hemoglobin 11.5, platelets are low at 135,000 and creatinine is elevated at 2.01. Urinalysis significant for 11-20 wbc's and moderate bacteria. Urine culture unfortunately is not pending at this time. ASSESSMENT: 1. Urinary retention for 400 mL. 2. Obstructive benign prostatic hypertrophy, measuring 59 mL. 3. Left renal cyst. 4. Leukocytosis. 5. Anemia. 6. Thrombocytopenia. 7. Presumably acute renal failure. 8. Urinary tract infection. PLAN: 1. We need to add a urine culture and sensitivity to the emergency room urinalysis. 2. Antibiotics per primary team. 3. Hematological and electrolyte abnormalities, per the primary team. 4. Leave the Monreal catheter in place at the present time. 5. Continue the patient's Flomax. We will probably need to add Proscar. 6. Once the patient is in his usual state of health, we will plan to discharge the patient home with a Monreal catheter in place and we will then proceed most likely with a urodynamic study to evaluate his voiding objectively and determine whether he needs to have a transurethral resection of the prostate versus other management. Thank you very much for involving us in care of your patient. We will be happy to follow along with you as well as an outpatient. Martin Salgado MD [place]/MODL /[id number] cc: Landry De La Garza MD
[2020-06-07 18:27] LABS: BASOPHILS # (AUTO) 0.1 (0.0-0.1); BASOPHILS % 0.5 % (0.0-1.0); EOSINOPHILS # (AUTO) 1.1 (0.0-0.4); EOSINOPHILS % 4.4 % (0.0-6.0); HEMATOCRIT 34.7 % (38.2-49.6); HEMOGLOBIN 11.8 g/dL (14.0-18.0); LYMPHOCYTES # (AUTO) 2.4 (1.0-3.2); LYMPHOCYTES % 9.6 % (18.0-39.1); MEAN CORPUSCULAR HEMOGLOBIN 31.1 pg (28-32); MEAN CORPUSCULAR VOLUME 91.3 fL (81-99); MONOCYTES # (AUTO) 0.8 (0.2-0.8); MONOCYTES % 3.1 % (4.4-11.3); NEUTROPHILS # (AUTO) 19.3 (2.1-6.9); NEUTROPHILS % 76.7 % (38.7-80.0); PLATELET COUNT 232 x10e3/uL (140-360); RED CELL DISTRIBUTION WIDTH 14.9 % (11.7-14.4)
--- NOTE | 2020-06-07 18:31 | NUR ---
Order to give the lovenox dose at this time with no regard of platelet trending due to suspected PE per Dr Jimenez.
[2020-06-07] MEDS: AZITHROMYCIN 500MG/NS 250 ML 250 ML IV SCH (18:33)
[2020-06-07] MEDS: ENOXAPARIN 30 MG/0.3 ML SYR SC SCH (18:38)
[2020-06-07 18:41] LABS: ANION GAP 15.4 mmol/L (8-16); CALCIUM 9.4 mg/dL (8.4-10.2); CREATININE, SERUM 1.82 mg/dL (0.72-1.25); POTASSIUM 3.4 mmol/L (3.5-5.1)
[2020-06-07] MEDS ORDERED: VANCOMYCIN 1GM/NS 250 ML 250 ML IV ONE (18:45)
--- NOTE | 2020-06-07 18:45 | NUR ---
End of shift note. Received pt with A fib RVR 150's. Dr Jimenez has ordered PICC line, radiology requests a nephrology consult to clear pt for PICC line due to GFR 33. Dr Jimenez does not want consult currently, and will monitor for GRF improvement. The VQ Scan is to be done stat as soon as heart rate is stabilized. Nuclear med has been notified for this to be anticipated tonight, will pass this on in report. Repeat labs ordered for possible sepsis workup. ABG's done respiratory aware to titrate to 92% sat, with 4 L NC current. HR down to 130's A fib. Pt remains lethargic, but responds appropriately when awakened.
--- NOTE | 2020-06-07 18:49 | Consultation ---
DATE OF CONSULTATION: Cardiology consult HISTORY OF PRESENT ILLNESS: Mr. Stubbs is a 75-year-old male with primary history of hypertension, diabetes, neuropathy, and GERD, who is admitted complaining of worsening shortness of breath in the last 72 hours accompanied with productive cough, fever and generalized weakness. The patient denies any chest pain, palpitations, nausea, or vomiting. PAST MEDICAL HISTORY: Diabetes and hypertension. Denies any cardiac surgeries or procedures in the past. Denies any atrial fibrillation or heart failure. SOCIAL HISTORY: The patient is smoker, just recently quit a week ago. The patient does not drink any alcohol. PHYSICAL EXAMINATION: CURRENT VITAL SIGNS: Temperature 98.4, pulse of 150, atrial fibrillation on telemetry, respiratory rate 20 to 30. Blood pressure 117/64. Pulse oximetry 98% on 3 L nasal cannula. GENERAL: The patient is currently tachypneic, moderately in respiratory distress. SKIN: Normal in appearance, texture, and temperature. Warm and dry. HEENT: Cranium is normocephalic and atraumatic. Pupils are equally round, reactive to light and accommodation. Sclerae are nonicteric. Ears are normal and mucosa is moist. Throat is clear. NECK: Supple. Full range of motion. No cervical lymphadenopathy. No thyromegaly. Carotid artery upstroke is normal bilaterally without bruits. No JVD. RESPIRATORY: Tachypneic. LUNGS: Diminished breath sounds all throughout lung hoff with fine crackles in lung bases. CARDIOVASCULAR: S1 and S2 is audible. Irregular rate and rhythm. No significant murmurs heard. GI: Soft, nontender, nondistended. Bowel sounds are present. EXTREMITIES: No cyanosis with a trace edema bilaterally. NEUROVASCULAR: Motor is intact. Pulses are palpable 1+ throughout. Motor and sensory examination of the upper and lower extremities are normal. Reflexes are normal and symmetrical bilaterally. IMPRESSION AND PLAN: Mr. Stubbs is a 75-year-old male, admitted with community-acquired pneumonia. The patient was tested negative for coronavirus disease twice. Cardiology is consulted for a new onset atrial fibrillation with rapid ventricular response. 1. Transfer to the intensive care unit for close hemodynamic monitoring and start IV amiodarone drip for rhythm control. 2. Initiate anticoagulation with Lovenox subcutaneously for stroke risk reduction. 3. Continue to monitor for any need of direct current cardioversion when RVR to AF or does not respond promptly to pharmacy and if the patient presents with acute hemodynamic instability. 4. Check thyroid function tests and obtain echocardiogram to evaluate valves and LV size and function. Further recommendations will follow according to the patient's clinical course. Thank you for this consultation. Dictated by Eri Gonzalez NP MD MARIA DE JESUS Flynn/TIFFANIE /[id number]
[2020-06-07 19:05] LABS: AMPHETAMINES SCREEN,URINE NEGATIVE (NEGATIVE); BENZODIAZEPINES SCREEN,URINE NEGATIVE (NEGATIVE); PHENCYCLIDINE SCREEN,URINE NEGATIVE (NEGATIVE)
[2020-06-07] MEDS ORDERED: POTASSIUM CHLORIDE 20MEQ/100ML 100 ML IV ONE (19:15)
[2020-06-07] MEDS: ATORVASTATIN 40 MG TAB PO SCH (21:56)
[2020-06-07] MEDS: PIPER-TAZ 3.375 GM 50 ML IV SCH (22:52)
[2020-06-07] MEDS: AMIODARONE 900MG 500 ML IV SCH (22:53)
--- NOTE | 2020-06-07 22:56 | Consultation ---
DATE OF CONSULTATION: Cardiology Consult HISTORY OF PRESENT ILLNESS: He is 75-year-old male with a primary history of hypertension, diabetes with peripheral neuropathy and GERD, admitted complaining of worsening shortness of breath in the last 72 hours, accompanied with productive cough and fever. The patient denies any chest pain, palpitations, or nausea or vomiting. PAST MEDICAL HISTORY: Hypertension, diabetes, and GERD. PAST SURGICAL HISTORY: The patient denies any cardiac surgeries or procedures in the past. Additional medical history, the patient denies any history of atrial fibrillation or any cardiac disease. FAMILY AND SOCIAL HISTORY: He does not smoke and does not drink alcohol. PHYSICAL EXAMINATION: VITAL SIGNS: Current vital signs; temperature 98.4, pulse of 150, telemetry showing an atrial fibrillation, respiratory rate of 20, blood pressure is 117/64, pulse oximetry 98% on 4 L nasal cannula. GENERAL: The patient is well-developed and well-nourished. The patient is currently tachypneic and on oxygen via a non-rebreather mask. SKIN: Normal in appearance in texture and temperature. Warm and dry. HEENT: The patient's cranium is normocephalic and atraumatic. Pupils are equally round and reactive to light and accommodation. Sclerae are nonicteric. Ears are normal. Mucosa is moist. NECK: Supple. Full range of motion. No cervical lymphadenopathy. No thyromegaly. Carotid artery upstroke is normal bilaterally without bruits. No JVD. RESPIRATORY: The patient is currently tachypneic. LUNGS: Fine crackles heard in bilateral lung bases and diminished heart sounds also at lung hoff. CARDIOVASCULAR: S1 and S2 is audible. Irregular rate and rhythm. No significant murmurs heard. GI: Soft, nontender and nondistended. Bowel sounds are present. EXTREMITIES: Trace edema to bilateral lower extremities. Pulses are 1 plus throughout. NEUROLOGIC: Motor and sensory examination of the upper and lower extremities is normal. Reflexes are normal and symmetrical bilaterally. LABORATORY DATA: WBC is 27.52, hemoglobin of 11.5, hematocrit is 35.1, MCH 31, MCV 94, and platelet count is 135. Potassium is 3.5, chloride is 107, BUN is 43, creatinine is 2.01, AST 38, ALT 69, troponin 0.022. BNP is 153. TSH 0.982. Lactic acid 2.0. IMAGING: Chest x-ray shows left basilar opacities corresponds with subsegmental atelectasis on CT of the prior date. CT chest, no pleural effusion, it does show diffuse pulmonary hyperinflation suggestive of a small airways disease. There is also cardiomegaly. IMPRESSION AND PLAN: The patient is admitted with community-acquired pneumonia. The patient was tested COVID negative twice. Cardiology was consulted to evaluate after the patient developed atrial fibrillation with rapid ventricular rate. The patient has to be transferred to ICU for close hemodynamic monitoring. Start IV amiodarone drip for rhythm control and we will start Lovenox for anticoagulation and check thyroid function test. Obtain echocardiogram to evaluate valves and LV size and function. We will continue to evaluate for any further need of any cardiac intervention. Further recommendation will follow according to the patient's clinical course. Thank you for this consultation. Dictated by Eri Gonzalez NP MD MARIA DE JESUS Flynn/TIFFANIE /[id number]
[2020-06-08] VITALS (25 sets, daily range): BP systolic 94–149; BP diastolic 57–109
[2020-06-08] MEDS: ALBUTEROL/IPRATROPIUM 3 ML NEB NEB SCH ×4 (04:45→20:25)
[2020-06-08 05:04] LABS: BASOPHILS # (AUTO) 0.2 (0.0-0.1); BASOPHILS % 0.7 % (0.0-1.0); EOSINOPHILS # (AUTO) 0.3 (0.0-0.4); EOSINOPHILS % 1.3 % (0.0-6.0); HEMATOCRIT 32.5 % (38.2-49.6); LYMPHOCYTES # (AUTO) 3.6 (1.0-3.2); LYMPHOCYTES % 14.8 % (18.0-39.1); MEAN CORPUSCULAR HGB CONC 33.8 g/dL (31-35); MEAN CORPUSCULAR VOLUME 91.5 fL (81-99); MONOCYTES # (AUTO) 0.6 (0.2-0.8); MONOCYTES % 2.4 % (4.4-11.3); NEUTROPHILS # (AUTO) 18.3 (2.1-6.9); PLATELET COUNT 225 x10e3/uL (140-360); RED BLOOD COUNT 3.55 x10e6/uL (4.3-5.7); RED CELL DISTRIBUTION WIDTH 14.8 % (11.7-14.4)
[2020-06-08] MEDS: METHYLPREDNISOLONE SOD SUCC 40 MG/ML VIAL 1ML IV SCH ×2 (05:27→21:20)
[2020-06-08] MEDS: LEVOTHYROXINE SODIUM 50 MCG TAB PO SCH (05:27)
[2020-06-08] MEDS: PIPER-TAZ 3.375 GM 50 ML IV SCH ×3 (05:27→22:00)
[2020-06-08 05:28] LABS: ANION GAP 13.5 mmol/L (8-16); CALCIUM 8.6 mg/dL (8.4-10.2); CREATININE, SERUM 1.58 mg/dL (0.72-1.25); POTASSIUM 3.5 mmol/L (3.5-5.1)
[2020-06-08] MEDS ORDERED: BUDESONIDE 0.5MG/2 ML NEB ONE ×2 (07:26→20:29)
[2020-06-08] MEDS: INSULIN LISPRO 100 UNIT/1 ML 3ML VIAL SQ SCH ×4 (07:48→21:22)
[2020-06-08] MEDS: PANTOPRAZOLE SOD 40 MG TABEC PO SCH (08:15)
[2020-06-08] MEDS: ENOXAPARIN 30 MG/0.3 ML SYR SC SCH ×2 (08:15→16:32)
[2020-06-08] MEDS: FINASTERIDE 5 MG TAB PO SCH (08:15)
[2020-06-08] MEDS: SODIUM CHLORIDE 0.9% 1000ML 1,000 ML IV SCH ×2 (08:15→18:11)
[2020-06-08 08:22] LABS: EOSINOPHILS % (MANUAL) 4 % (0-7); LYMPHOCYTES % (MANUAL) 10 % (19-48); MONOCYTES % (MANUAL) 4 % (3.4-9.0); NEUTROPHILS % (MANUAL) 77 % (40-74); PLATELET ESTIMATE ADEQUATE; PLATELET MORPHOLOGY COMMENT NORMAL; RBC MORPHOLOGY COMMENT NORMAL
[2020-06-08] MEDS: BUDESONIDE 0.25 MG/2 ML NEB NEB SCH ×2 (08:30→20:25)
--- NOTE | 2020-06-08 10:18 | NUR ---
patient seen and examined chart reviewed. This is infectious disease per his note for June 08, 2020 the patient remains intubated and sedated ITAL SIGNS: Current vital signs; temperature 98.4, pulse of 150, telemetry showing an atrial fibrillation, respiratory rate of 20, blood pressure is 117/64, pulse oximetry 98% on 4 L nasal cannula. GENERAL: The patient is well-developed and well-nourished. The patient is currently tachypneic and on oxygen via a non-rebreather mask. SKIN: Normal in appearance in texture and temperature. Warm and dry. HEENT: The patient's cranium is normocephalic and atraumatic. Pupils are equally round and reactive to light and accommodation. Sclerae are nonicteric. Ears are normal. Mucosa is moist. NECK: Supple. Full range of motion. No cervical lymphadenopathy. No thyromegaly. Carotid artery upstroke is normal bilaterally without bruits. No JVD. RESPIRATORY: The patient is currently tachypneic. LUNGS: Fine crackles heard in bilateral lung bases and diminished heart sounds also at lung hoff. CARDIOVASCULAR: S1 and S2 is audible. Irregular rate and rhythm. No significant murmurs heard. GI: Soft, nontender and nondistended. Bowel sounds are present. EXTREMITIES: Trace edema to bilateral lower extremities. Pulses are 1 plus throughout. NEUROLOGIC: Motor and sensory examination of the upper and lower extremities is normal. Reflexes are normal and symmetrical bilaterally. LABORATORY DATA: WBC is 27.52, hemoglobin of 11.5, hematocrit is 35.1, MCH 31, MCV 94, and platelet count is 135. Potassium is 3.5, chloride is 107, BUN is 43, creatinine is 2.01, AST 38, ALT 69, troponin 0.022. BNP is 153. TSH 0.982. Lactic acid 2.0. IMAGING: Chest x-ray shows left basilar opacities corresponds with subsegmental atelectasis on CT of the prior date. CT chest, no pleural effusion, it does show diffuse pulmonary hyperinflation suggestive of a small airways disease. There is also cardiomegaly. CAP RESP FAILURE CONT ORDERED
[2020-06-08] MEDS ORDERED: POTASSIUM CHLORIDE 20 MEQ TAB CR PO ONE (10:46)
[2020-06-08] MEDS: AZITHROMYCIN 500MG/NS 250 ML 250 ML IV SCH (16:32)
[2020-06-08] MEDS: TAMSULOSIN HCL 0.4 MG CAP PO SCH (16:32)
[2020-06-08] MEDS: AMIODARONE 900MG 500 ML IV SCH (18:10)
[2020-06-08] MEDS: ATORVASTATIN 40 MG TAB PO SCH (21:19)
[2020-06-08] MEDS: TRAMADOL HCL 50 MG TAB PO PRN (21:22)
[2020-06-09] VITALS (18 sets, daily range): BP systolic 128–154; BP diastolic 62–77
[2020-06-09] MEDS: ALBUTEROL/IPRATROPIUM 3 ML NEB NEB SCH ×4 (01:50→19:20)
[2020-06-09] MEDS: LEVOTHYROXINE SODIUM 50 MCG TAB PO SCH (05:01)
[2020-06-09] MEDS: PIPER-TAZ 3.375 GM 50 ML IV SCH ×2 (05:01→13:27)
[2020-06-09 06:09] LABS: BASOPHILS # (AUTO) 0.2 (0.0-0.1); BASOPHILS % 0.5 % (0.0-1.0); EOSINOPHILS # (AUTO) 0.1 (0.0-0.4); EOSINOPHILS % 0.4 % (0.0-6.0); HEMATOCRIT 29.9 % (38.2-49.6); HEMOGLOBIN 10.2 g/dL (14.0-18.0); LYMPHOCYTES % 10.6 % (18.0-39.1); MEAN CORPUSCULAR HEMOGLOBIN 31.9 pg (28-32); MEAN CORPUSCULAR HGB CONC 34.1 g/dL (31-35); MEAN CORPUSCULAR VOLUME 93.4 fL (81-99); MONOCYTES # (AUTO) 1.2 (0.2-0.8); MONOCYTES % 4.2 % (4.4-11.3); NEUTROPHILS # (AUTO) 22.2 (2.1-6.9); NEUTROPHILS % 77.3 % (38.7-80.0); PLATELET COUNT 255 x10e3/uL (140-360); RED CELL DISTRIBUTION WIDTH 14.7 % (11.7-14.4)
[2020-06-09 06:45] LABS: ALBUMIN 2.1 g/dL (3.5-5.0); ALBUMIN/GLOBULIN RATIO 0.5 (0.8-2.0); ANION GAP 13.3 mmol/L (8-16); CALCIUM 8.2 mg/dL (8.4-10.2); CREATININE, SERUM 1.29 mg/dL (0.72-1.25); POTASSIUM 3.3 mmol/L (3.5-5.1)
[2020-06-09] MEDS ORDERED: BUDESONIDE 0.5MG/2 ML NEB ONE (07:28)
[2020-06-09] MEDS: INSULIN LISPRO 100 UNIT/1 ML 3ML VIAL SQ SCH ×4 (07:33→20:00)
[2020-06-09] MEDS: BUDESONIDE 0.25 MG/2 ML NEB NEB SCH ×2 (08:10→19:30)
[2020-06-09] MEDS: AMIODARONE HCL 200 MG TAB PO SCH ×2 (08:12→16:00)
[2020-06-09] MEDS: METHYLPREDNISOLONE SOD SUCC 40 MG/ML VIAL 1ML IV SCH (08:12)
[2020-06-09] MEDS: FINASTERIDE 5 MG TAB PO SCH (08:13)
[2020-06-09] MEDS: PANTOPRAZOLE SOD 40 MG TABEC PO SCH (08:13)
[2020-06-09] MEDS: ENOXAPARIN 30 MG/0.3 ML SYR SC SCH ×2 (08:14→16:01)
[2020-06-09] MEDS ORDERED: MAGNESIUM HYDROXIDE 30 ML UDC PO PRN (10:15)
[2020-06-09] MEDS ORDERED: POTASSIUM CHLORIDE 20 MEQ TAB CR PO NR (10:30)
[2020-06-09] MEDS ORDERED: CITRATE OF MAGNESIA 300ML BOTTLE PO NR (10:30)
[2020-06-09] MEDS: DOCUSATE SODIUM LIQD 100 MG/10 ML UDC NG SCH (11:30)
[2020-06-09] MEDS: TAMSULOSIN HCL 0.4 MG CAP PO SCH (16:00)
--- NOTE | 2020-06-09 16:26 | NUR ---
transferred to 209 son notified
--- NOTE | 2020-06-09 16:30 | NUR ---
RECEIVED PATIENT FROM ICU. PATIENT A/O X3 RESPIRATIONS EVEN AND UNLABORED 2LNC. BARBOSA IN PLACE. RIGHT IJ TRIPLE LUMEN WITH NS @ 50 CC/HR INFUSING. PATIENT DENIES PAIN AT THIS TIME. TELEMETRY #1 SR. ORIENTED PATIENT TO ROOM AND CALL LIGHT. BED LOW, WHEELS LOCKED, SIDE RAILS X2. CALL LIGHT IN REACH WILL CONTINUE TO MONITOR PATIENT.
--- NOTE | 2020-06-09 16:43 | Progress Note ---
DATE: SUBJECTIVE: Mr. Stubbs remains in Intensive Care Unit, intubated and sedated. His cultures are negative still. His white count today jumped up to 28.6, hemoglobin 10. His COVID-19 PCR two came back negative. His UA was positive. Sodium 140, potassium 3.3 with a creatinine of 1.29. His white count was elevated. His Doppler was ordered. His chest x-ray showed no acute finding. Diffuse hepatic steatosis. MEDICATIONS: He is currently on Zosyn and azithromycin. He is on methylprednisone 20 b.i.d. PHYSICAL EXAMINATION: GENERAL: Intubated, stated. HEENT: He is not icteric. NECK: Supple. CHEST: Crackles bilateral. HEART: S1-S2. ABDOMEN: Soft. Bowel sounds present. EXTREMITIES: No edema. IMPRESSION: 1. Respiratory failure. 2. Sepsis on admission, source is unclear. I am going to discontinue the steroid. Recheck CBC. Recheck Chem panel. Check amylase, lipase, liver enzyme. Check ultrasound of the abdomen to rule out cholecystitis. We will follow. MD BUTCH Ham/TIFFANIE /[id number]
--- NOTE | 2020-06-09 17:00 | NUR ---
PAGED DR. COLÓN REGARDING LACTIC ACID RESULTS.
[2020-06-09] MEDS: SODIUM CHLORIDE 0.9% 1000ML 1,000 ML IV SCH (17:26)
[2020-06-09 17:41] LABS: AMYLASE 41 U/L (25-125); LIPASE 22 U/L (8-78)
[2020-06-09] MEDS: ATORVASTATIN 40 MG TAB PO SCH (20:07)
--- NOTE | 2020-06-09 20:40 | NUR ---
Patient requesting medication for sleep. Left message for Dr Wells regarding patient request. Awaiting call back.
[2020-06-09] MEDS: METRONIDAZOLE 500MG/NS 100ML 100 ML IV SCH (21:17)
--- NOTE | 2020-06-09 21:18 | NUR ---
Spoke with regarding patient requesting medication for sleep. No new orders for medication, if patient resting, let patient rest and do not wake to take v/s. patient updated. Addendum: 06/09/20 at 2124 by Selam Dyson RN Dr Wells
[2020-06-09] MEDS: TRAMADOL HCL 50 MG TAB PO PRN (21:24)
[2020-06-09] MEDS: CEFEPIME 1GM/NS 0.9% 50 ML 50 ML IV SCH (22:00)
[2020-06-10] VITALS (8 sets, daily range): BP systolic 132–165; BP diastolic 55–90
--- NOTE | 2020-06-10 | NUR ---
Education provided that patient to be nothing by mouth after midnight for procedure. All food and drinks removed from bedside. Patient verbalized understanding.
[2020-06-10] MEDS: ALBUTEROL/IPRATROPIUM 3 ML NEB NEB SCH ×4 (00:05→19:45)
--- NOTE | 2020-06-10 04:00 | NUR ---
Noted diaz leaking, urine noted in brief. Diaz assessed. No issues noted. Brief changed and pericare provided. Will continue to monitor.
[2020-06-10] MEDS: METRONIDAZOLE 500MG/NS 100ML 100 ML IV SCH (05:00)
[2020-06-10] MEDS: LEVOTHYROXINE SODIUM 50 MCG TAB PO SCH (05:30)
--- NOTE | 2020-06-10 05:45 | NUR ---
Brief remains dry, no urine noted. Will continue to monitor.
[2020-06-10] MEDS: CEFEPIME 1GM/NS 0.9% 50 ML 50 ML IV SCH (06:14)
[2020-06-10 07:01] LABS: BASOPHILS # (AUTO) 0.2 (0.0-0.1); BASOPHILS % 0.8 % (0.0-1.0); EOSINOPHILS # (AUTO) 1.2 (0.0-0.4); EOSINOPHILS % 5.3 % (0.0-6.0); HEMATOCRIT 29.1 % (38.2-49.6); HEMOGLOBIN 10.1 g/dL (14.0-18.0); LYMPHOCYTES # (AUTO) 3.3 (1.0-3.2); LYMPHOCYTES % 14.2 % (18.0-39.1); MEAN CORPUSCULAR HEMOGLOBIN 33.7 pg (28-32); MEAN CORPUSCULAR HGB CONC 34.7 g/dL (31-35); MONOCYTES # (AUTO) 1.2 (0.2-0.8); MONOCYTES % 5.3 % (4.4-11.3); NEUTROPHILS # (AUTO) 15.3 (2.1-6.9); PLATELET COUNT 242 x10e3/uL (140-360); RED CELL DISTRIBUTION WIDTH 15.7 % (11.7-14.4)
--- NOTE | 2020-06-10 07:15 | NUR ---
Bedside report and walking rounds completed with oncoming nurse. Patient in bed with call light within reach. No issues or concerns noted.
[2020-06-10 07:20] LABS: PARTIAL THROMBOPLASTIN TIME 30.2 seconds (23.8-35.5)
[2020-06-10 07:26] LABS: INR 1.25; PROTHROMBIN TIME 16.4 seconds (11.9-14.5)
[2020-06-10] MEDS ORDERED: METHYLPREDNISOLONE SOD SUCC 40 MG/ML VIAL 1ML IV SCH (07:30)
[2020-06-10] MEDS: INSULIN LISPRO 100 UNIT/1 ML 3ML VIAL SQ SCH ×4 (07:30→22:09)
[2020-06-10 07:50] LABS: FERRITIN 550.65 ng/mL (21.81-274.66)
[2020-06-10] MEDS: BUDESONIDE 0.25 MG/2 ML NEB NEB SCH ×2 (08:00→19:45)
[2020-06-10] MEDS: DOCUSATE SODIUM LIQD 100 MG/10 ML UDC NG SCH ×2 (09:00→17:54)
[2020-06-10] MEDS ORDERED: CHLORDIAZEPOXIDE HCL 10 MG CAP PO PRN (09:30)
[2020-06-10] MEDS ORDERED: METHYLPREDNISOLONE SOD SUCC 125 MG/2ML VIAL IV ONE (09:50)
[2020-06-10] MEDS: AMIODARONE HCL 200 MG TAB PO SCH ×2 (09:54→17:54)
[2020-06-10] MEDS: FINASTERIDE 5 MG TAB PO SCH (09:54)
[2020-06-10] MEDS: PANTOPRAZOLE SOD 40 MG TABEC PO SCH (09:54)
--- NOTE | 2020-06-10 09:54 | Diagnostic Imaging Report ---
EXAM: US ABDOMEN COMPLETE DATE: 06/10/2020 7:43 AM INDICATION: ^R/O CHOLECYSTITIS COMPARISON: 06/07/2020 TECHNIQUE: Transverse and longitudinal bray scale and color doppler sonographic images of the abdomen were obtained. FINDINGS: LIVER 15.8 cm in the right midclavicular line. Diffusely echogenic with normal contour, no masses. There is a 0.6 cm anechoic cyst in the right hepatic lobe. SPLEEN 13.2 cm in maximum diameter. Normal echogenicity, no masses. GALLBLADDER No gallbladder wall thickening, distension, stone, or pericholecystic fluid. Negative reported sonographic Sotomayor's sign. BILE DUCTS No intra nor extra-hepatic biliary dilation. Common bile duct measures 0.3cm PANCREAS: Not well visualized. RIGHT KIDNEY: 11.7 cm Echogenicity: Normal Collecting System: No hydronephrosis Stones: None Cyst/Mass: None LEFT KIDNEY: 11.6 cm Echogenicity: Normal Collecting System: No hydronephrosis Stones: None Cyst/Mass: 1.6 cm anechoic cyst is noted in the midpole. VESSELS: Aorta: Visualized portions are within normal size limits Inferior Vena Cava: Visualized portions are normal Main Portal Vein: 0.8 cm, normal size with hepatopetal flow. FREE FLUID: None IMPRESSION: 1. Negative for cholelithiasis or biliary dilatation. 2. Hepatic steatosis. 2. Left interpolar 1.6 cm anechoic cyst. Signed by: Uli Dent MD on 06/10/2020 9:51 AM
[2020-06-10] MEDS: AZTREONAM 1 GM/NS 50 ML 50 ML IV SCH ×2 (10:00→17:55)
[2020-06-10] MEDS: OLOPATADINE 5 ML BTL OP SCH ×2 (10:30→17:53)
[2020-06-10] MEDS: SODIUM CHLORIDE 0.9% 1000ML 1,000 ML IV SCH (11:29)
[2020-06-10] MEDS: CLINDAMYCIN 300MG 50 ML IV SCH ×3 (11:30→22:08)
[2020-06-10 11:48] LABS: BAND NEUTROPHILS % (MANUAL) 10 %; EOSINOPHILS % (MANUAL) 4 % (0-7); LYMPHOCYTES % (MANUAL) 12 % (19-48); MONOCYTES % (MANUAL) 4 % (3.4-9.0); NEUTROPHILS % (MANUAL) 70 % (40-74)
[2020-06-10] MEDS ORDERED: POTASSIUM CHLORIDE 10MEQ EA PO ONE (12:00)
--- NOTE | 2020-06-10 13:38 | Diagnostic Imaging Report ---
PROCEDURE: Ultrasound guided biopsy Procedural Personnel Attending physician(s): Uli Dent MD Fellow physician(s): None Resident physician(s): None Advanced practice provider(s): None Pre-procedure diagnosis: Mediastinal mass or lymphadenopathy of unknown origin Post-procedure diagnosis: Same Indication: Histopathologic diagnosis Previous biopsy of same target (QCDR): No Additional clinical history: None Complications: No immediate complications. IMPRESSION: Image-guided biopsy of right axillary lymph node. Plan: Specimen(s) sent for evaluation. PROCEDURE SUMMARY: - Percutaneous ultrasound-guided core needle and fine needle aspiration biopsy biopsy - Additional procedure(s): None PROCEDURE DETAILS: Pre-procedure Reference imaging for biopsy target: None Consent: Informed consent for the procedure including risks, benefits and alternatives was obtained and time-out was performed prior to the procedure. Preparation: The site was prepared and draped using maximal sterile barrier technique including cutaneous antisepsis. Anesthesia/sedation Level of anesthesia/sedation: No sedation Anesthesia/sedation administered by: Not applicable Total intra-service sedation time (minutes): N/A Imaging prior to biopsy The patient was positioned supine. Initial imaging was performed. Biopsy target: - Maximal diameter (cm): 1.2 - Location: Right axilla Other findings: None Biopsy Local anesthesia was administered. Under imaging guidance as stated in the procedure summary, the biopsy needle was advanced to the target and biopsy was performed. Coaxial needle: 17 gauge Core needle biopsy device: Temno Core needle size: 18 gauge Number of core specimens: 2 Fine needle aspiration device: 22g chiba Fine needle size: 22 gauge Number of FNA specimens: 4 On-site biopsy touch preparation: Yes Additional sampling recommendations: After review of the fine needle sample, the pathologist requested core biopsies for further and complete evaluation. Preliminary assessment of sample adequacy: Adequate Needle removal The biopsy needle was removed and a sterile dressing was applied. Tract embolization: None Imaging following biopsy Post-biopsy imaging: Ultrasound Post-biopsy imaging findings: No acute hematoma or complication. Contrast Contrast agent: None Contrast volume (mL): 0 Additional Details Additional description of procedure: None Equipment details: None Specimens removed: Biopsy samples as detailed above Estimated blood loss (mL): Less than 10 Standardized report: [id number] Attestation Signer name: Uli Dent MD I attest that I was present for the entire procedure. I reviewed the stored images and agree with the report as written. Signed by: Uli Dent MD on 06/10/2020 1:35 PM
[2020-06-10] MEDS: TAMSULOSIN HCL 0.4 MG CAP PO SCH (17:54)
--- NOTE | 2020-06-10 18:05 | Progress Note ---
DATE: SUBJECTIVE: The patient is seen and evaluated. Available labs and notes reviewed. Discussed with staff. The patient is seen with the nurse in the room. MEDICATIONS: Reviewed. Adjusted by attending physician this morning. The patient's antibiotics were changed to clindamycin and Azactam. Also, given dose of Solu-Medrol per my discussion with the nurse. REVIEW OF SYSTEMS: The patient has no complaints. No nausea, vomiting, fever, chills, chest pain, shortness of breath, headache, rash, dysuria, or polyuria. However, nurses complained that the patient has some pinkish color across his face, which is more prominent on the right side. The patient was seen and evaluated with Dr. Campos. OBJECTIVE: VITAL SIGNS: Temperature 97.8, pulse 86, respirations 20, and blood pressure 132/55. GENERAL: Alert, oriented, very pleasant, sitting in a recliner. No acute distress. CV: S1, S2. CHEST: Equal expansion, decreased breath sounds. No acute distress. ABDOMEN: Soft, nontender, nondistended. HEENT: Moist. No pallor. No JVD. EXTREMITIES: No obvious acute finding. No cyanosis or clubbing. LABORATORY STUDIES: White count of 23.24, improved from 28.66, hemoglobin 10.1, platelet 242. GC pending. COVID-19 PCR negative on 06/06. HIV negative on 06/07. Mycoplasma pending. Urine Legionella antigen is negative. MICROBIOLOGY: Blood culture negative, 72 hours. Urine culture negative, 24 hours. RADIOLOGY STUDIES: Status post percutaneous ultrasound-guided core needle and fine-needle aspiration biopsy. ASSESSMENT AND PLAN: 1. . Okay with a choice of clindamycin and Azactam. Continue with the same for now. Elevated LFT, improving. 2. Lymphadenopathy - status post biopsy. 3. Bilateral subsegmental atelectasis with pulmonary hyperinflation suggesting small airway disease. 4. Cardiomegaly. 5. Discussed with staff. V/Q scan was not done. We will go ahead and try to complete the V/Q scan. Continue with choice of antibiotics at this point and monitor the patient clinically and follow up with the labs. Discussed with Dr. Campos in details as well. Dictated by Pascual Belle PA-C (Al) MD NOMAN Ham/TIFFANIE /[id number]
--- NOTE | 2020-06-10 19:00 | NUR ---
Resumed care of patient. Patient awake and resting in bed, VS stable from baseline. Bed locked and in lowest position, side rails upx3, alarm on, call light placed within reach. Patient instructed to call for assistance if needed, verbalized understanding. All safety measures in place.
[2020-06-10] MEDS ORDERED: POLYETHYLENE GLYCOL 3350 17 GM PACK PO PRN (19:30)
[2020-06-10] MEDS: ATORVASTATIN 40 MG TAB PO SCH (22:08)
[2020-06-10] MEDS: TRAMADOL HCL 50 MG TAB PO PRN (22:09)
[2020-06-11] VITALS (8 sets, daily range): BP systolic 141–168; BP diastolic 71–87
[2020-06-11] MEDS: ALBUTEROL/IPRATROPIUM 3 ML NEB NEB SCH ×4 (00:57→19:45)
[2020-06-11] MEDS: AZTREONAM 1 GM/NS 50 ML 50 ML IV SCH ×3 (01:37→18:03)
[2020-06-11] MEDS: SODIUM CHLORIDE 0.9% 1000ML 1,000 ML IV SCH (05:21)
[2020-06-11] MEDS: LEVOTHYROXINE SODIUM 50 MCG TAB PO SCH (05:21)
[2020-06-11] MEDS: CLINDAMYCIN 300MG 50 ML IV SCH ×4 (05:21→23:29)
[2020-06-11 06:25] LABS: BASOPHILS # (AUTO) 0.2 (0.0-0.1); BASOPHILS % 0.6 % (0.0-1.0); EOSINOPHILS # (AUTO) 0.2 (0.0-0.4); EOSINOPHILS % 0.8 % (0.0-6.0); HEMATOCRIT 29.5 % (38.2-49.6); HEMOGLOBIN 10.2 g/dL (14.0-18.0); LYMPHOCYTES # (AUTO) 4.2 (1.0-3.2); LYMPHOCYTES % 17.5 % (18.0-39.1); MEAN CORPUSCULAR HEMOGLOBIN 33.2 pg (28-32); MEAN CORPUSCULAR HGB CONC 34.6 g/dL (31-35); MEAN CORPUSCULAR VOLUME 96.1 fL (81-99); MONOCYTES # (AUTO) 1.6 (0.2-0.8); MONOCYTES % 6.5 % (4.4-11.3); NEUTROPHILS % 66.6 % (38.7-80.0); PLATELET COUNT 238 x10e3/uL (140-360); RED BLOOD COUNT 3.07 x10e6/uL (4.3-5.7); RED CELL DISTRIBUTION WIDTH 15.7 % (11.7-14.4)
[2020-06-11] MEDS: TRAMADOL HCL 50 MG TAB PO PRN ×2 (06:34→21:08)
[2020-06-11 06:50] LABS: ANION GAP 14.5 mmol/L (8-16); BLOOD UREA NITROGEN 25 mg/dL (7-26); BUN/CREATININE RATIO 22 (6-25); CALCIUM 7.7 mg/dL (8.4-10.2); CARBON DIOXIDE 15 mmol/L (22-29); CHLORIDE 111 mmol/L (98-107); CREATININE, SERUM 1.14 mg/dL (0.72-1.25); EST GLOMERULAR FILTRATION RATE > 60 ML/MIN (60-); GLUCOSE 114 mg/dL (74-118); POTASSIUM 3.5 mmol/L (3.5-5.1); SODIUM 137 mmol/L (136-145)
--- NOTE | 2020-06-11 07:07 | NUR ---
Bedside report given to oncoming nurse. Patient awake and resting in bed, no s/s of distress at this time. All safety measures in place.
[2020-06-11] MEDS: INSULIN LISPRO 100 UNIT/1 ML 3ML VIAL SQ SCH ×4 (07:30→21:00)
[2020-06-11] MEDS: BUDESONIDE 0.25 MG/2 ML NEB NEB SCH ×2 (08:15→19:45)
[2020-06-11] MEDS: ENOXAPARIN 30 MG/0.3 ML SYR SC SCH ×2 (09:00→18:47)
[2020-06-11 09:17] LABS: BAND NEUTROPHILS % (MANUAL) 1 %; EOSINOPHILS % (MANUAL) 2 % (0-7); LYMPHOCYTES % (MANUAL) 14 % (19-48); MONOCYTES % (MANUAL) 7 % (3.4-9.0); MYELOCYTES % (MANUAL) 4 % (0-0); NEUTROPHILS % (MANUAL) 72 % (40-74)
[2020-06-11 09:18] LABS: ANISOCYTOSIS SLIGHT; PLATELET ESTIMATE ADEQUATE; PLATELET MORPHOLOGY COMMENT RARE EDTA CLUMPING; RBC MORPHOLOGY COMMENT NORMAL
[2020-06-11] MEDS ORDERED: POTASSIUM CHLORIDE 20 MEQ TAB CR PO ONE (09:30)
--- NOTE | 2020-06-11 09:41 | NUR ---
PT is at bedside to eval patient
[2020-06-11] MEDS: PANTOPRAZOLE SOD 40 MG TABEC PO SCH (10:33)
[2020-06-11] MEDS: AMIODARONE HCL 200 MG TAB PO SCH ×2 (10:33→18:03)
[2020-06-11] MEDS: FINASTERIDE 5 MG TAB PO SCH (10:33)
[2020-06-11] MEDS: DOCUSATE SODIUM LIQD 100 MG/10 ML UDC NG SCH ×2 (10:33→18:03)
[2020-06-11] MEDS: OLOPATADINE 5 ML BTL OP SCH ×2 (10:34→18:03)
--- NOTE | 2020-06-11 13:58 | NUR ---
infectious disease progress note patient was seen and examined record reviewed chart reviewed medication list reviewed This is June 11, 2023 Patient seen and examined discussed with medical team. The patient is seen and evaluated. Available labs and notes reviewed. Discussed with staff. The patient is seen with the nurse in the room. MEDICATIONS: Reviewed. Adjusted by attending physician this morning. The patient's antibiotics were changed to clindamycin and Azactam. Also, given dose of Solu-Medrol per my discussion with the nurse. REVIEW OF SYSTEMS: The patient has no complaints. No nausea, vomiting, fever, chills, chest pain, shortness of breath, headache, rash, dysuria, or polyuria. However, nurses complained that the patient has some pinkish color across his face, which is more prominent on the right side. The patient was seen and evaluated with Dr. Campos. OBJECTIVE: VITAL SIGNS: Physical examination remains comfortable Temperature 97.8, pulse 86, respirations 20, and blood pressure 132/55. GENERAL: Alert, oriented, very pleasant, sitting in a recliner. No acute distress. CV: S1, S2. CHEST: Equal expansion, decreased breath sounds. No acute distress. ABDOMEN: Soft, nontender, nondistended. HEENT: Moist. No pallor. No JVD. EXTREMITIES: No obvious acute finding. No cyanosis or clubbing. LABORATORY STUDIES: White count of 23.24, improved from 28.66, hemoglobin 10.1, platelet 242. GC pending. COVID-19 PCR negative on 06/06. HIV negative on 06/07. Mycoplasma pending. Urine Legionella antigen is negative. MICROBIOLOGY: Blood culture negative, 72 hours. Urine culture negative, 24 hours. RADIOLOGY STUDIES: Status post percutaneous ultrasound-guided core needle and fine-needle aspiration biopsy. ASSESSMENT AND PLAN: leukocytosis concern about malignancy concern about lymphoma versus other Mediastinal mass or lymphadenopathy of unknown origin Test was biopsied with pathology acquired pneumonia clinically stable Continue with antibiotic await pathology continue supportive care
[2020-06-11] MEDS: TAMSULOSIN HCL 0.4 MG CAP PO SCH (18:03)
--- NOTE | 2020-06-11 19:40 | Diagnostic Imaging Report ---
Perfusion Lung Scan NOTE: Lung ventilation studies with xenon are not being performed per the recommendation of the Society of Nuclear Medicine and Molecular Imaging. It is not possible to be certain that the ventilation system is adequately disinfected. Ventilation studies with Tc-99m DTPA particles is contraindicated because the delivery by nebulization generates too many water droplets from the patient's airway. Clinical Information: SOB. 75 M admitted with sepsis. Comparison: Chest radiograph 06/07/2020; CT chest 06/06/2020 Discussion: Ventilation images were not obtained. See note above. Perfusion images of the lungs were obtained in multiple projections following intravenous administration of approximately 6 mCi of Tc-99m MAA. Distribution of tracer is irregular throughout the lungs. No segmental perfusion defects of any size are present. The cardiomediastinal silhouette is unremarkable. Impression: 1. Scan findings represent a VERY LOW probability for acute pulmonary embolic disease based on the perfusion-only PIOPED II criteria. Concurrent ventilation study would not alter the assigned probability for acute PE. 2. Scan findings are compatible with diffuse parenchymal and/or obstructive lung disease. Signed by: Dr. Rufina Guerrier M.D. on 06/11/2020 7:37 PM
[2020-06-11] MEDS: ATORVASTATIN 40 MG TAB PO SCH (21:07)
[2020-06-12] VITALS (7 sets, daily range): BP systolic 127–168; BP diastolic 62–85
[2020-06-12] MEDS: ALBUTEROL/IPRATROPIUM 3 ML NEB NEB SCH ×3 (00:23→15:05)
[2020-06-12] MEDS: AZTREONAM 1 GM/NS 50 ML 50 ML IV SCH ×3 (02:41→19:20)
[2020-06-12] MEDS: CLINDAMYCIN 300MG 50 ML IV SCH ×4 (05:12→23:00)
[2020-06-12] MEDS: LEVOTHYROXINE SODIUM 50 MCG TAB PO SCH (05:12)
[2020-06-12] MEDS: TRAMADOL HCL 50 MG TAB PO PRN (05:15)
[2020-06-12] MEDS: SODIUM CHLORIDE 0.9% 1000ML 1,000 ML IV SCH ×2 (05:25→23:29)
--- NOTE | 2020-06-12 07:01 | NUR ---
RECEIVED BEDSIDE SHIFT REPORT FROM PM NURSE. PT AWAKE, ALERT, ORIENTED, NO S/S OF DISTRESS. ALL SAFETY MEASURES IN PLACE.
[2020-06-12] MEDS: INSULIN LISPRO 100 UNIT/1 ML 3ML VIAL SQ SCH ×4 (07:30→21:00)
[2020-06-12] MEDS: BUDESONIDE 0.25 MG/2 ML NEB NEB SCH (08:15)
[2020-06-12] MEDS: OLOPATADINE 5 ML BTL OP SCH ×2 (12:02→18:17)
[2020-06-12] MEDS: DOCUSATE SODIUM LIQD 100 MG/10 ML UDC NG SCH ×2 (12:02→18:17)
[2020-06-12] MEDS: FINASTERIDE 5 MG TAB PO SCH (12:03)
[2020-06-12] MEDS: PANTOPRAZOLE SOD 40 MG TABEC PO SCH (12:03)
[2020-06-12] MEDS: ENOXAPARIN 30 MG/0.3 ML SYR SC SCH ×2 (12:03→18:18)
[2020-06-12] MEDS: PREGABALIN 50 MG CAP PO SCH ×2 (12:03→18:18)
[2020-06-12] MEDS: AMIODARONE HCL 200 MG TAB PO SCH ×2 (12:03→18:17)
--- NOTE | 2020-06-12 13:54 | NUR ---
infectious disease parents note Patient seen and examined chart reviewed no new complaints but he is weak This is June 12, 2023 Patient seen and examined discussed with medical team. The patient is seen and evaluated. Available labs and notes reviewed. Discussed with staff. The patient is seen with the nurse in the room. MEDICATIONS: Reviewed. Adjusted by attending physician this morning. The patient's antibiotics were changed to clindamycin and Azactam. Also, given dose of Solu-Medrol per my discussion with the nurse. REVIEW OF SYSTEMS: The patient has no complaints. No nausea, vomiting, fever, chills, chest pain, shortness of breath, headache, rash, dysuria, or polyuria. However, nurses complained that the patient has some pinkish color across his face, which is more prominent on the right side. The patient was seen and evaluated with Dr. Campos. OBJECTIVE: VITAL SIGNS: Physical examination remains comfortable Temperature 97.8, pulse 86, respirations 20, and blood pressure 132/55. GENERAL: Alert, oriented, very pleasant, sitting in a recliner. No acute distress. CV: S1, S2. CHEST: Equal expansion, decreased breath sounds. No acute distress. ABDOMEN: Soft, nontender, nondistended. HEENT: Moist. No pallor. No JVD. EXTREMITIES: No obvious acute finding. No cyanosis or clubbing. LABORATORY STUDIES: White count of 23.24, improved from 28.66, hemoglobin 10.1, platelet 242. GC pending. COVID-19 PCR negative on 06/06. HIV negative on 06/07. Mycoplasma pending. Urine Legionella antigen is negative. MICROBIOLOGY: Blood culture negative, 72 hours. Urine culture negative, 24 hours. RADIOLOGY STUDIES: Status post percutaneous ultrasound-guided core needle and fine-needle aspiration biopsy. Concern about malignancy await biopsy
--- NOTE | 2020-06-12 15:04 | NUR ---
BS PFT performed per Dr. Bolaños order. Final study results awaiting MD review. Pt tolerated PFT well.
[2020-06-12] MEDS: TAMSULOSIN HCL 0.4 MG CAP PO SCH (18:18)
--- NOTE | 2020-06-12 18:30 | NUR ---
Nutrition Screen Note RD Recommendation for Physician: -Continue current diet as ordered Plan of Care: RD following, monitoring for tolerance and adequacy Nutrition reason for involvement: length of stay Primary Diagnose(s): severe sepsis, CHF, pneumonia PMH: COPD on x-ray, Diabetes type 2. Hypertension. Diabetic neuropathy. Chronic anemia. Dyslipidemia. Osteoarthritis. Reflux. Hypothyroidism. Ht: 67 in Wt:189 lb BMI: 29.6 kg/m2 IBW:[address] Assessment: (06/12/20) Chart reviewed. Labs and meds reviewed. Pt is a 75 year old male admitted with severe sepsis, CHF, and pneumonia. Pt is primarily [place]-speaking per chart. RN reports that it appears pt has a good appetite. Last recorded PO intake was 50% on 06/08. Per chart, there are no reports of decreased appetite or recent unintentional weight loss prior to admission. Will continue to monitor. Current Diet: cardiac Malnutrition Evaluation (06/12/20) The patient does not meet criteria for a specified degree of malnutrition at this time. Will re-evaluate at follow-up as appropriate. Diet Education Needs Assessment: RD is available for diet education as needed Nutrition Care Level: low Signed: Yessy Hdz, RD, LD
--- NOTE | 2020-06-12 19:53 | NUR ---
Received change of shift report from AM nurse. Walking rounds completed.
[2020-06-12] MEDS: ATORVASTATIN 40 MG TAB PO SCH (21:00)
[2020-06-13] VITALS (8 sets, daily range): BP systolic 122–164; BP diastolic 60–89
[2020-06-13] MEDS: AZTREONAM 1 GM/NS 50 ML 50 ML IV SCH ×2 (02:00→09:06)
[2020-06-13] MEDS: CLINDAMYCIN 300MG 50 ML IV SCH ×2 (05:00→11:45)
[2020-06-13 05:25] LABS: BASOPHILS # (AUTO) 0.2 (0.0-0.1); BASOPHILS % 0.7 % (0.0-1.0); EOSINOPHILS # (AUTO) 2.4 (0.0-0.4); EOSINOPHILS % 9.8 % (0.0-6.0); HEMATOCRIT 31.8 % (38.2-49.6); HEMOGLOBIN 10.8 g/dL (14.0-18.0); LYMPHOCYTES # (AUTO) 4.4 (1.0-3.2); LYMPHOCYTES % 18.2 % (18.0-39.1); MEAN CORPUSCULAR HEMOGLOBIN 31.6 pg (28-32); MONOCYTES # (AUTO) 1.1 (0.2-0.8); MONOCYTES % 4.4 % (4.4-11.3); NEUTROPHILS # (AUTO) 14.7 (2.1-6.9); NEUTROPHILS % 61.3 % (38.7-80.0); PLATELET COUNT 305 x10e3/uL (140-360); RED BLOOD COUNT 3.42 x10e6/uL (4.3-5.7); RED CELL DISTRIBUTION WIDTH 15.4 % (11.7-14.4)
[2020-06-13] MEDS: LEVOTHYROXINE SODIUM 50 MCG TAB PO SCH (05:51)
--- NOTE | 2020-06-13 05:53 | NUR ---
Patient resting qitly with no c/o at this time. Continue monitor.
[2020-06-13 06:01] LABS: ANION GAP 13.3 mmol/L (8-16); BLOOD UREA NITROGEN 15 mg/dL (7-26); BUN/CREATININE RATIO 15 (6-25); CALCIUM 7.4 mg/dL (8.4-10.2); CARBON DIOXIDE 17 mmol/L (22-29); CHLORIDE 110 mmol/L (98-107); CREATININE, SERUM 1.02 mg/dL (0.72-1.25); EST GLOMERULAR FILTRATION RATE > 60 ML/MIN (60-); GLUCOSE 73 mg/dL (74-118); POTASSIUM 3.3 mmol/L (3.5-5.1); SODIUM 137 mmol/L (136-145)
[2020-06-13] MEDS: ALBUTEROL/IPRATROPIUM 3 ML NEB NEB SCH ×2 (07:10→13:08)
[2020-06-13] MEDS: BUDESONIDE 0.25 MG/2 ML NEB NEB SCH (07:10)
--- NOTE | 2020-06-13 07:11 | NUR ---
BEDSIDE SHIFT REPORT RECEIVED FROM PM NURSE. PT IN STABLE CONDITION.
[2020-06-13] MEDS: INSULIN LISPRO 100 UNIT/1 ML 3ML VIAL SQ SCH ×4 (07:30→21:21)
--- NOTE | 2020-06-13 07:51 | NUR ---
PAGED DR. HILLIARD FOR SURGICAL CONSULT. AWAITING CALLBACK.
--- NOTE | 2020-06-13 07:53 | NUR ---
PT INFORMED HE MUST BE NPO FOR SURGICAL CONSULT TODAY. BREAKFAST TRAY REMOVED PRIOR TO PT EATING. PT STATES LAST NIGHT HE ONLY HAD A FEW SIPS OF WATER, BUT NOTHING ELSE BY MOUTH.
[2020-06-13] MEDS: DOCUSATE SODIUM LIQD 100 MG/10 ML UDC NG SCH ×3 (08:07→18:24)
[2020-06-13] MEDS: OLOPATADINE 5 ML BTL OP SCH ×2 (08:07→18:23)
[2020-06-13] MEDS: PREGABALIN 50 MG CAP PO SCH ×2 (08:08→18:25)
[2020-06-13] MEDS: PANTOPRAZOLE SOD 40 MG TABEC PO SCH (08:08)
[2020-06-13] MEDS: FINASTERIDE 5 MG TAB PO SCH (08:08)
[2020-06-13] MEDS: AMIODARONE HCL 200 MG TAB PO SCH ×2 (09:06→18:25)
[2020-06-13] MEDS: ENOXAPARIN 30 MG/0.3 ML SYR SC SCH (09:06)
[2020-06-13] MEDS ORDERED: POTASSIUM CHLORIDE 10MEQ EA PO SCH (09:40)
--- NOTE | 2020-06-13 13:05 | NUR ---
Discontinuing PT services since patient is Mod I in functional mobility. Thank you Addendum: 06/13/20 at 1306 by Kurt greer PT Amended: Links added.
--- NOTE | 2020-06-13 14:01 | Consultation ---
DATE OF CONSULTATION: 06/13/2020 CHIEF COMPLAINT: Lymphadenopathy. HISTORY OF PRESENT ILLNESS: This patient is a 75-year-old male admitted for shortness of breath and cough without fevers. The patient was tested negative for COVID-19. He had chest x-ray showing COPD and CT of the chest showing mediastinal, axillary and neck lymphadenopathy. Lung parenchyma without lesions. He had an axillary lymph node needle biopsy, which was nondiagnostic. PAST MEDICAL HISTORY: Significant for metabolic syndrome with diabetes, hypertension, hyperlipidemia, osteoarthritis, COPD, hypothyroidism, and GERD. PAST SURGICAL HISTORY: Positive for hernia repair. SOCIAL HISTORY: He does not smoke or drink. REVIEW OF SYSTEMS: No chest pain, mild shortness of breath. No fever or cough. PHYSICAL EXAMINATION: VITAL SIGNS: The patient's vital signs are stable, afebrile. GENERAL: He is awake, alert, in no apparent distress. HEENT: Anicteric. NECK: Supple. No palpable adenopathy or mass in the neck or supraclavicular region. LUNGS: Essentially clear. No wheezes. HEART: Regular rate and rhythm. Axillary space, no palpable enlarged lymphadenopathy. ABDOMEN: Soft and nontender. EXTREMITIES: No cyanosis or edema. LABORATORY DATA: White cell count 24,000, hemoglobin of 10.8, and platelet count of 305,000. Creatinine is 1.0. CT scan of the chest as mentioned showing no parenchymal lesions and evidence of mediastinal, supraclavicular, and axillary lymphadenopathy measuring between 1-2 cm. ASSESSMENT: The patient with baseline COPD and shortness of breath with mediastinal and neck axillary adenopathy. Aspiration needle biopsy is nondiagnostic. Planned consideration for excisional biopsy of axillary or neck lymph nodes, however, nonpalpable lymphadenopathy usually reactive. We will schedule for excision of biopsy under anesthesia. MD ALPESH Crowley/TIFFANIE /[id number]
--- NOTE | 2020-06-13 16:46 | NUR ---
INFECTIOUS DISEASE PROGRESS NOTE SUBJECTIVE: The patient is seen and evaluated. Available labs and notes reviewed. Discussed with staff. The patient is seen with the nurse in the room. MEDICATIONS: Reviewed. Adjusted by attending physician this morning. The patient's antibiotics were changed to clindamycin and Azactam. Also, given dose of Solu-Medrol per my discussion with the nurse. REVIEW OF SYSTEMS: The patient has no complaints. No nausea, vomiting, fever, chills, chest pain, shortness of breath, headache, rash, dysuria, or polyuria. However, nurses complained that the patient has some pinkish color across his face, which is more prominent on the right side. OBJECTIVE: VITAL SIGNS: Temperature 97.8, pulse 86, respirations 20, and blood pressure 132/55. GENERAL: Alert, oriented, very pleasant, sitting in a recliner. No acute distress. CV: S1, S2. CHEST: Equal expansion, decreased breath sounds. No acute distress. ABDOMEN: Soft, nontender, nondistended. HEENT: Moist. No pallor. No JVD. EXTREMITIES: No obvious acute finding. No cyanosis or clubbing. LABORATORY STUDIES: White count of 23.24, improved from 28.66, hemoglobin 10.1, platelet 242. GC pending. COVID-19 PCR negative on 06/06. HIV negative on 06/07. Mycoplasma pending. Urine Legionella antigen is negative. MICROBIOLOGY: Blood culture negative, 72 hours. Urine culture negative, 24 hours. RADIOLOGY STUDIES: Status post percutaneous ultrasound-guided core needle and fine-needle aspiration biopsy. ASSESSMENT AND PLAN: 1. clindamycin and Azactam. Continue with the same for now. Elevated LFT, improving. 2. Lymphadenopathy - status post biopsy. 3. Bilateral subsegmental atelectasis with pulmonary hyperinflation suggesting small airway disease. 4. Cardiomegaly. 5. reviewed VQ scan Awaiting pathology, Leukocytosis is likely reactive. D/C ABT. Monitor off ABT clinically.
[2020-06-13] MEDS: TAMSULOSIN HCL 0.4 MG CAP PO SCH (18:25)
[2020-06-13] MEDS: ATORVASTATIN 40 MG TAB PO SCH (21:20)
--- NOTE | 2020-06-13 22:10 | NUR ---
COMPLETED INFORMED CONSENT WITH CULTURAL LINK. SUBSTATION DESIGNER RADHA Payan ID NUMBER [id number].
[2020-06-13] MEDS: HYDROCODONE/APAP 7.5MG-325MG 1 EA TAB PO PRN (23:48)
[2020-06-14] VITALS (7 sets, daily range): BP systolic 143–158; BP diastolic 60–76
[2020-06-14] MEDS: ALBUTEROL/IPRATROPIUM 3 ML NEB NEB SCH ×3 (01:00→13:54)
--- NOTE | 2020-06-14 05:10 | NUR ---
CENTRAL LINE CARE GIVEN. DAILY CHG BATH. NEW PORTS. SALINE FLUSHES. ALCOHOL CAPS. C/O PAIN TO R HAND IV UPON SALINE FLUSH. D/C IV TO R HAND CATHETER TIP INTACT. CDI DRESSING APPLIED. BARBOSA CARE PROVIDED VIA CASTILE SOAP WIPES.
[2020-06-14 05:23] LABS: BASOPHILS # (AUTO) 0.1 (0.0-0.1); BASOPHILS % 0.6 % (0.0-1.0); EOSINOPHILS # (AUTO) 2.1 (0.0-0.4); EOSINOPHILS % 10.3 % (0.0-6.0); HEMATOCRIT 32.1 % (38.2-49.6); HEMOGLOBIN 10.7 g/dL (14.0-18.0); LYMPHOCYTES # (AUTO) 4.6 (1.0-3.2); LYMPHOCYTES % 22.2 % (18.0-39.1); MEAN CORPUSCULAR HEMOGLOBIN 31.8 pg (28-32); MEAN CORPUSCULAR HGB CONC 33.3 g/dL (31-35); MEAN CORPUSCULAR VOLUME 95.3 fL (81-99); MONOCYTES % 4.9 % (4.4-11.3); NEUTROPHILS # (AUTO) 11.8 (2.1-6.9); NEUTROPHILS % 56.7 % (38.7-80.0); PLATELET COUNT 327 x10e3/uL (140-360); RED BLOOD COUNT 3.37 x10e6/uL (4.3-5.7); RED CELL DISTRIBUTION WIDTH 15.5 % (11.7-14.4)
[2020-06-14] MEDS: LEVOTHYROXINE SODIUM 50 MCG TAB PO SCH (05:59)
[2020-06-14] MEDS: INSULIN LISPRO 100 UNIT/1 ML 3ML VIAL SQ SCH ×4 (07:30→20:39)
--- NOTE | 2020-06-14 07:31 | NUR ---
REPORT GIVEN TO DAYSHIFT NURSE. ALERT AND ORIENTED. NO SIGNS IV INFILTRATION. BED LOCKED AND LOW POSITION. CALL LIGHT WITHIN REACH. BED ALARM ACTIVATED.
--- NOTE | 2020-06-14 08:54 | NUR ---
okay to remove tele for MRI
[2020-06-14] MEDS: AMIODARONE HCL 200 MG TAB PO SCH ×2 (09:00→17:00)
[2020-06-14] MEDS: FINASTERIDE 5 MG TAB PO SCH (09:00)
[2020-06-14] MEDS: DOCUSATE SODIUM LIQD 100 MG/10 ML UDC NG SCH ×2 (09:00→17:00)
[2020-06-14] MEDS: PREGABALIN 50 MG CAP PO SCH ×2 (09:00→17:00)
[2020-06-14] MEDS: PANTOPRAZOLE SOD 40 MG TABEC PO SCH (09:00)
[2020-06-14] MEDS ORDERED: GADOBENATE DIMEGLUMINE 1 ML IV ONE (09:09)
--- NOTE | 2020-06-14 09:10 | NUR ---
Patient is transported for MRI at this time.
[2020-06-14] MEDS: OLOPATADINE 5 ML BTL OP SCH ×2 (09:38→17:00)
--- NOTE | 2020-06-14 10:15 | NUR ---
Patient is back to room from MRI.
--- NOTE | 2020-06-14 12:04 | Diagnostic Imaging Report ---
Examination: Brain MRI without Contrast History: Confusion. Altered mental status Comparison studies: None. Technique: Precontrast: Hi resolution Sag T1 with coronal and axial reformats. Axial DWI, T2, T2 flair, gradient echo or SWI Postcontrast axial and coronal fat saturated T1. Intravenous contrast: 17 mL MultiHance. Findings: Structural lesions: No intra-or extra-axial masses. No hematomas. Atrophy: General: Generalized volume loss. Focal: No disproportionate lobar, hippocampal, mesencephalic, pontine, or cerebellar atrophy. Raphael matter: Cortex:No signal abnormalities. No encephalomalacia. Basal ganglia: No atrophy or signal abnormalities. Thalami: No signal abnormalities. Micro hemorrhages: None. White matter signal intensity: There are a few scattered punctate areas of T2/FLAIR hyperintensity in the periventricular and subcortical white matter, nonspecific. Subarachnoid spaces: No signal abnormalities. Ventricles: Normal in size and configuration. No hydrocephalus. Hippocampi, fornix and mammillary bodies: Normal in size and symmetric. Other: Skull: No bone marrow abnormalities. Vessels: Focal loss of signal in the cavernous left internal carotid artery concerning for stenosis. The flow voids present in the remaining nature arteries and dural sinuses is normal. Sella: Normal in size. No intra-or suprasellar abnormalities. Cranio-cervical junction: No abnormalities. Patent foramen magnum. No Chiari one malformation. Paranasal sinuses: Mild inflammatory mucosal thickening of the bilateral maxillary sinuses and ethmoid air cells.. IMPRESSION: 1. No acute intracranial abnormality. 2. Minimal chronic microvascular ischemic change. 3. Generalized volume loss. 4. Possible left cavernous internal carotid artery stenosis. Further evaluation may be obtained with intracranial CTA. Signed by: Dr. Jigna Mathias M.D. on 06/14/2020 12:00 PM
--- NOTE | 2020-06-14 12:19 | Pulmonary Function Test ---
DATE OF STUDY: REFERRING PHYSICIAN: The patient of Dr. Wells. Study is suboptimal due to coughing. However, forced vital capacity was 2.49 L, 67% of predicted, FEV1 1.23 L, 44%. FEV1/FVC ratio 49%. FEF 25/75, 51% consistent with severe obstructive pulmonary disease. Concomitant restriction cannot be excluded. There was apparent significant improvement in FEV1 to 1.77 L, 44% of predicted, though there was a small decline in forced vital capacity of 4%, this may have been due to the patient's coughing. Vicente Bolaños MD DS/MODL /[id number] MTDD
[2020-06-14] MEDS ORDERED: IPRATROPIUM BROMIDE 0.02% 2.5 ML NEB NEB SCH (13:00)
[2020-06-14] MEDS ORDERED: LIDOCAINE HCL 2% LOCAL INJ 5 ML SDV VIAL INJ ONE (14:41)
[2020-06-14] MEDS ORDERED: PROPOFOL IV EMULSION 10 MG/ML 20 ML VIAL ONE (14:41)
[2020-06-14] MEDS ORDERED: SEVOFLURANE INHAL SOLN 250 ML PEN BTL ONE (14:41)
[2020-06-14] MEDS ORDERED: DEXAMETHASONE SOD PHOS INJ 4 MG/ML VIAL ONE (14:41)
[2020-06-14] MEDS ORDERED: ONDANSETRON HCL INJ 2MG/ML 2ML 2 MG/ML VIAL ONE (14:41)
[2020-06-14] MEDS: TAMSULOSIN HCL 0.4 MG CAP PO SCH (17:00)
--- NOTE | 2020-06-14 17:02 | NUR ---
NFECTIOUS DISEASE PROGRESS NOTE SUBJECTIVE: The patient is seen and evaluated. Available labs and notes reviewed. Discussed with staff. The patient is seen with the nurse in the room. MEDICATIONS: Reviewed. Adjusted by attending physician this morning. The patient's antibiotics were changed to clindamycin and Azactam. Also, given dose of Solu-Medrol per my discussion with the nurse. REVIEW OF SYSTEMS: The patient has no complaints. No nausea, vomiting, fever, chills, chest pain, shortness of breath, headache, rash, dysuria, or polyuria. However, nurses complained that the patient has some pinkish color across his face, which is more prominent on the right side. OBJECTIVE: VITAL SIGNS: Temperature 97.8, pulse 86, respirations 20, and blood pressure 132/55. GENERAL: Alert, oriented, very pleasant, sitting in a recliner. No acute distress. CV: S1, S2. CHEST: Equal expansion, decreased breath sounds. No acute distress. ABDOMEN: Soft, nontender, nondistended. HEENT: Moist. No pallor. No JVD. EXTREMITIES: No obvious acute finding. No cyanosis or clubbing. Aspiration pneumonia Clinically doing well Continue antibiotic as ordered
--- NOTE | 2020-06-14 17:55 | NUR ---
Patient is transported for procedure at this time.
[2020-06-14] MEDS ORDERED: LIDOCAINE HCL 1% LOCAL INJ 20 ML VIAL ONE (18:06)
[2020-06-14] MEDS ORDERED: FENTANYL CITRATE/PF 100MCG/2 ML INJ ONE (18:44)
--- NOTE | 2020-06-14 20:04 | NUR ---
CALLED MD HILLIARD. LEFT MESSAGE. AWAITING CALL BACK.
--- NOTE | 2020-06-14 20:12 | NUR ---
SPOKE TO MD HILLIARD. NEW ORDERS RECEIVED.
[2020-06-14] MEDS ORDERED: SODIUM CHLORIDE 0.9% 250ML 250 ML ONE (20:59)
[2020-06-14] MEDS: CEFAZOLIN SOD 1 GM/NS 50ML 50 ML IV SCH (21:04)
[2020-06-14] MEDS: ATORVASTATIN 40 MG TAB PO SCH (21:04)
--- NOTE | 2020-06-14 22:06 | Operative Report ---
DATE OF PROCEDURE: 06/14/2020 SURGEON: Vicente Lara MD PREOPERATIVE DIAGNOSIS: Axillary lymphadenopathy. POSTOPERATIVE DIAGNOSIS: Axillary lymphadenopathy. OPERATIVE PROCEDURE: Excisional biopsy of right axillary lymph node. ANESTHESIA: General; Dr. Zamora. INDICATION: A 75-year-old male with history of diffuse lymphadenopathy on CT scan of the chest, who consented for excisional biopsy of right axillary lymph node for diagnostic purpose. Attendant risks discussed. DESCRIPTION OF PROCEDURE: The patient was brought to OR, intubated. The right arm was abducted and the axillary space was prepped with alcohol and draped in sterile fashion. A transverse incision was made in the right axillary area extending through the deep subcutaneous tissue. The superficial fascia was opened with scissors. The axillary lymph node palpated within the fat pad. We then grasped the fat pad and excised it using the Harmonic Scalpel to control lymphatic channels. Hemostasis achieved. The specimen was placed in saline for pathology. Operative field irrigated. Hemostasis achieved. A 7-Filipino MARGOT drain placed in the axillary space and taken out through a separate stab wound incisions. We then closed the wound with interrupted 3-0 Vicryl for subcutaneous tissue and the skin with subcuticular stitch. The patient was extubated and transferred to recovery room. BLOOD LOSS: 5 mL. Vicente Lara MD DNL/MODL /[id number]
[2020-06-14] MEDS: HYDROCODONE/APAP 7.5MG-325MG 1 EA TAB PO PRN (22:11)
[2020-06-15] VITALS (8 sets, daily range): BP systolic 125–153; BP diastolic 55–85
--- NOTE | 2020-06-15 04:29 | NUR ---
BARBOSA CARE PROVIDED VIA CASTILE SOAP WIPES. CENTRAL LINE CARE PROVIDED. DAILY CHG BATH. NEW PORTS. SALINE FLUSHES. ALCOHOL CAPS PLACED.
[2020-06-15] MEDS: LEVOTHYROXINE SODIUM 50 MCG TAB PO SCH (05:09)
[2020-06-15] MEDS: HYDROCODONE/APAP 7.5MG-325MG 1 EA TAB PO PRN ×2 (05:09→20:22)
[2020-06-15] MEDS: ALBUTEROL/IPRATROPIUM 3 ML NEB NEB SCH ×3 (06:40→20:05)
[2020-06-15] MEDS: BUDESONIDE 0.25 MG/2 ML NEB NEB SCH ×2 (06:40→20:05)
--- NOTE | 2020-06-15 07:05 | NUR ---
REPORT GIVEN TO DAYSHIFT NURSE. ALERT AND RESTING IN BED. NO SIGNS IV INFILTRATION. BED LOCKED AND IN LOW POSITION. CALL LIGHT WITHIN REACH. BED ALARM ACTIVATED.
[2020-06-15] MEDS: INSULIN LISPRO 100 UNIT/1 ML 3ML VIAL SQ SCH ×4 (07:30→20:31)
[2020-06-15] MEDS: OLOPATADINE 5 ML BTL OP SCH ×2 (08:42→15:40)
[2020-06-15] MEDS: CEFAZOLIN SOD 1 GM/NS 50ML 50 ML IV SCH ×3 (08:42→23:45)
[2020-06-15] MEDS: DOCUSATE SODIUM LIQD 100 MG/10 ML UDC NG SCH ×2 (08:42→15:40)
[2020-06-15] MEDS: AMIODARONE HCL 200 MG TAB PO SCH ×2 (08:42→15:40)
[2020-06-15] MEDS: FINASTERIDE 5 MG TAB PO SCH (08:43)
[2020-06-15] MEDS: PANTOPRAZOLE SOD 40 MG TABEC PO SCH (08:43)
[2020-06-15] MEDS: PREGABALIN 50 MG CAP PO SCH ×2 (08:43→15:41)
[2020-06-15] MEDS ORDERED: CHLORDIAZEPOXIDE HCL 10 MG CAP PO PRN (12:00)
[2020-06-15] MEDS: TAMSULOSIN HCL 0.4 MG CAP PO SCH (15:41)
--- NOTE | 2020-06-15 16:00 | NUR ---
Verbal order given by Dr. Jimenez to remove centra line.
--- NOTE | 2020-06-15 16:54 | NUR ---
infectious disease progress note patient's exam and chart reviewed patient is currently alert oriented without significant acute distress vital stable Review of system otherwise unremarkable NFECTIOUS DISEASE PROGRESS NOTE SUBJECTIVE: The patient is seen and evaluated. Available labs and notes reviewed. Discussed with staff. The patient is seen with the nurse in the room. MEDICATIONS: Reviewed. Adjusted by attending physician this morning. The patient's antibiotics were changed to clindamycin and Azactam. Also, given dose of Solu-Medrol per my discussion with the nurse. REVIEW OF SYSTEMS: The patient has no complaints. No nausea, vomiting, fever, chills, chest pain, shortness of breath, headache, rash, dysuria, or polyuria. However, nurses complained that the patient has some pinkish color across his face, which is more prominent on the right side. OBJECTIVE: VITAL SIGNS: Temperature 97.8, pulse 86, respirations 20, and blood pressure 132/55. GENERAL: Alert, oriented, very pleasant, sitting in a recliner. No acute distress. CV: S1, S2. CHEST: Equal expansion, decreased breath sounds. No acute distress. ABDOMEN: Soft, nontender, nondistended. HEENT: Moist. No pallor. No JVD. EXTREMITIES: No obvious acute finding. No cyanosis or clubbing. Aspiration pneumonia Clinically doing well Natalia continue antibiotic continue supportive care PT OT swallow evaluation to be considered
--- NOTE | 2020-06-15 19:22 | NUR ---
Report given to night nurse. Respiration even and unlabored without SOB. Night nurse informed that patient needs to have leg bag for urinary catheter on discharge and education needed for night drainage bag placement and care for diaz catheter on discharge.
--- NOTE | 2020-06-15 19:35 | NUR ---
Right IJ triple lumen removed as ordered, catheter tip intact, no bleeding noted. Occlusive dressing applied.
[2020-06-15] MEDS: ATORVASTATIN 40 MG TAB PO SCH (20:21)
[2020-06-16] VITALS (8 sets, daily range): BP systolic 120–156; BP diastolic 60–79
--- NOTE | 2020-06-16 00:31 | NUR ---
Resting now.Aaox3.no resp.distress.diaz care given.call light within reach.instructed to call for assistance as needed.
[2020-06-16] MEDS: ALBUTEROL/IPRATROPIUM 3 ML NEB NEB SCH ×4 (01:05→18:35)
[2020-06-16] MEDS: LEVOTHYROXINE SODIUM 50 MCG TAB PO SCH (05:11)
[2020-06-16 05:38] LABS: BASOPHILS # (AUTO) 0.2 (0.0-0.1); BASOPHILS % 1.1 % (0.0-1.0); EOSINOPHILS # (AUTO) 1.7 (0.0-0.4); EOSINOPHILS % 9.4 % (0.0-6.0); HEMATOCRIT 31.8 % (38.2-49.6); HEMOGLOBIN 10.4 g/dL (14.0-18.0); LYMPHOCYTES # (AUTO) 4.8 (1.0-3.2); LYMPHOCYTES % 26.1 % (18.0-39.1); MEAN CORPUSCULAR HEMOGLOBIN 31.1 pg (28-32); MEAN CORPUSCULAR HGB CONC 32.7 g/dL (31-35); MEAN CORPUSCULAR VOLUME 95.2 fL (81-99); MONOCYTES # (AUTO) 1.1 (0.2-0.8); MONOCYTES % 6.1 % (4.4-11.3); NEUTROPHILS # (AUTO) 10.1 (2.1-6.9); NEUTROPHILS % 55.5 % (38.7-80.0); PLATELET COUNT 368 x10e3/uL (140-360); RED BLOOD COUNT 3.34 x10e6/uL (4.3-5.7); RED CELL DISTRIBUTION WIDTH 15.9 % (11.7-14.4)
[2020-06-16 05:55] LABS: MAGNESIUM 1.7 MG/DL (1.3-2.1); PHOSPHORUS 2.4 MG/DL (2.3-4.7)
[2020-06-16 06:17] LABS: BLOOD UREA NITROGEN 17 mg/dL (7-26); BUN/CREATININE RATIO 16 (6-25); CALCIUM 7.2 mg/dL (8.4-10.2); CARBON DIOXIDE 17 mmol/L (22-29); CHLORIDE 111 mmol/L (98-107); CREATININE, SERUM 1.06 mg/dL (0.72-1.25); EST GLOMERULAR FILTRATION RATE > 60 ML/MIN (60-); GLUCOSE 92 mg/dL (74-118); SODIUM 138 mmol/L (136-145)
--- NOTE | 2020-06-16 07:05 | NUR ---
Bed side shift report given to oncoming rn.stable condition.
--- NOTE | 2020-06-16 07:06 | NUR ---
bedside shift report received from PM nurse. pt in stable condition.
[2020-06-16] MEDS: INSULIN LISPRO 100 UNIT/1 ML 3ML VIAL SQ SCH ×4 (07:30→20:27)
[2020-06-16] MEDS: DOCUSATE SODIUM LIQD 100 MG/10 ML UDC NG SCH ×2 (09:00→15:52)
[2020-06-16] MEDS: CEFAZOLIN SOD 1 GM/NS 50ML 50 ML IV SCH ×2 (09:26→16:30)
[2020-06-16] MEDS: PANTOPRAZOLE SOD 40 MG TABEC PO SCH (09:27)
[2020-06-16] MEDS: FINASTERIDE 5 MG TAB PO SCH (09:27)
[2020-06-16] MEDS: PREGABALIN 50 MG CAP PO SCH ×2 (09:28→16:31)
[2020-06-16] MEDS: AMIODARONE HCL 200 MG TAB PO SCH ×2 (09:28→16:30)
[2020-06-16] MEDS: OLOPATADINE 5 ML BTL OP SCH ×2 (09:30→16:30)
--- NOTE | 2020-06-16 09:33 | NUR ---
upon examination, noted pt's MARGOT drain is dislodged; found in pt's blankets on the couch pt sleeping on. no active bleeding noted. paging surgeon, Dr. Lara.
--- NOTE | 2020-06-16 09:49 | NUR ---
Dr. Hernandez called back (covering for Dr. Lara); informed MD of dislodged Jhonathan drain. no new orders received. pt in stable condition, will continue to monitor.
[2020-06-16] MEDS: TAMSULOSIN HCL 0.4 MG CAP PO SCH (16:31)
[2020-06-16] MEDS: BUDESONIDE 0.25 MG/2 ML NEB NEB SCH (18:35)
--- NOTE | 2020-06-16 19:04 | NUR ---
bedside shift report given to PM nurse. pt awake, alert, no s/s distress. diaz draining to gravity, hung below pt's bladder. all safety measures in place. pt in stable condition.
--- NOTE | 2020-06-16 19:12 | NUR ---
Received the pt in report.stable condition.no pain voiced.diaz draining well.dressing site is dry.call light within reach.instructed to call for assistance as needed.
[2020-06-16] MEDS: ATORVASTATIN 40 MG TAB PO SCH (20:38)
[2020-06-16] MEDS: HYDROCODONE/APAP 7.5MG-325MG 1 EA TAB PO PRN (20:43)
--- NOTE | 2020-06-16 22:14 | NUR ---
infectious disease progress note patient's exam and chart reviewed patient is currently alert oriented without significant acute distress vital stable Review of system otherwise unremarkable NFECTIOUS DISEASE PROGRESS NOTE SUBJECTIVE: The patient is seen and evaluated. Available labs and notes reviewed. Discussed with staff. The patient is seen with the nurse in the room. MEDICATIONS: Reviewed. Adjusted by attending physician this morning. The patient's antibiotics were changed to clindamycin and Azactam. Also, given dose of Solu-Medrol per my discussion with the nurse. REVIEW OF SYSTEMS: The patient has no complaints. No nausea, vomiting, fever, chills, chest pain, shortness of breath, headache, rash, dysuria, or polyuria. However, nurses complained that the patient has some pinkish color across his face, which is more prominent on the right side. OBJECTIVE: VITAL SIGNS: Temperature 97.8, pulse 86, respirations 20, and blood pressure 132/55. GENERAL: Alert, oriented, very pleasant, sitting in a recliner. No acute distress. CV: S1, S2. CHEST: Equal expansion, decreased breath sounds. No acute distress. ABDOMEN: Soft, nontender, nondistended. HEENT: Moist. No pallor. No JVD. EXTREMITIES: No obvious acute finding. No cyanosis or clubbing. Aspiration pneumonia Clinically doing well to finish 5 days of antibiotic continue antibiotic continue supportive care PT OT swallow evaluation to be considered
[2020-06-17] VITALS: BP 131/70
[2020-06-17] MEDS: CEFAZOLIN SOD 1 GM/NS 50ML 50 ML IV SCH ×2 (00:10→10:00)
[2020-06-17] MEDS: ALBUTEROL/IPRATROPIUM 3 ML NEB NEB SCH ×2 (00:50→07:30)
[2020-06-17 04:00] VITALS: BP 144/70
[2020-06-17] MEDS: HYDROCODONE/APAP 7.5MG-325MG 1 EA TAB PO PRN (04:20)
[2020-06-17] MEDS: LEVOTHYROXINE SODIUM 50 MCG TAB PO SCH (05:38)
--- NOTE | 2020-06-17 07:22 | NUR ---
BED SIDE SHIFT REPORT GIVEN TO ONCOMING RN.STABLE CONDITION.
[2020-06-17] MEDS: BUDESONIDE 0.25 MG/2 ML NEB NEB SCH (07:30)
[2020-06-17] MEDS: INSULIN LISPRO 100 UNIT/1 ML 3ML VIAL SQ SCH ×2 (07:30→11:28)
--- NOTE | 2020-06-17 07:35 | NUR ---
ASSUMED CARE. RESTING IN BED. NO DISTRESS NOTED. CALL LIGHT IN REACH. SIDE RAILS UP X2. BED LOW AND LOCKED.
[2020-06-17 08:04] VITALS: BP 156/78
[2020-06-17 08:57] VITALS: BP 156/78
[2020-06-17] MEDS: OLOPATADINE 5 ML BTL OP SCH (10:00)
[2020-06-17] MEDS: DOCUSATE SODIUM LIQD 100 MG/10 ML UDC NG SCH (10:00)
[2020-06-17] MEDS: PANTOPRAZOLE SOD 40 MG TABEC PO SCH (10:00)
[2020-06-17] MEDS: AMIODARONE HCL 200 MG TAB PO SCH (10:00)
[2020-06-17] MEDS: PREGABALIN 50 MG CAP PO SCH (10:00)
[2020-06-17] MEDS: FINASTERIDE 5 MG TAB PO SCH (10:00)
[2020-06-17] MEDS ORDERED: POTASSIUM CHLORIDE 20 MEQ TAB CR PO ONE (11:00)
[2020-06-17 11:25] VITALS: BP 164/72
--- NOTE | 2020-06-17 12:28 | NUR ---
Home O2 eval was completed. Pt 96% on RA with exertion. Does not qualify for home O2. Spoke to pt with nurse at bedside. Pt is agreeable to home health. States never used before, but can use any company in network with insurance. Choice letter signed for [facility], [facility] and [facility]. Copy of choice letter with each company's contact information given to pt. Informed pt that referral will be faxed to [facility]. CM asked pt to give them a call if he does not hear from them within 24 hrs of discharge. IMM letter discussed. Pt states he's ready to go home. [place] copy provided to pt. Signed choice letter and IMM placed in chart. Home health referral faxed to [facility] at [phone] / . Dotty with [facility] was informed of referral and discharge for today.
--- NOTE | 2020-06-17 16:23 | Progress Note ---
DATE: SUBJECTIVE: Mr. Stubbs is doing well. REVIEW OF SYSTEMS: HEENT: Negative. PULMONARY: Negative. CARDIAC: Negative. PHYSICAL EXAMINATION: GENERAL: He is currently alert, oriented. VITAL SIGNS: Stable, afebrile. HEENT: He is not icteric. NECK: Supple. CHEST: Clear bilateral. HEART: S1 and S2. ABDOMEN: Soft. IMPRESSION: Aspiration pneumonia, finish 5 days of antibiotic. We will follow. Discharge planning per Internal Medicine. MD BUTCH Ham/TIFFANIE /[id number]
--- NOTE | 2020-06-18 03:10 | Discharge Summary ---
PRIMARY CARE PHYSICIAN: Dr. Landry De La Garza. CONSULTANTS: 1. Dr. Andrea Campos. 2. Dr. Solomon Lenz. 3. Dr. Vicente Lara. 4. Dr. Martin Salgado. 5. Dr. Vicente Baker. 6. Dr. Vicente Bolaños. FINAL DIAGNOSES: 1. Status post right axillary lymph node excisional biopsy by Dr. Vicente Lara. Results of pathology pending. 2. Pulmonary hyperinflation consistent with acute exacerbation of chronic obstructive pulmonary disease, associated with atypical community-acquired pneumonia with acute hypoxia, resolving. 3. Paroxysmal atrial fibrillation, now normal sinus rhythm on amiodarone treatment. 4. [id number] congestive heart failure secondary to arrhythmia, ejection fraction of 50%. 5. Urinary retention, status post Monreal catheter placement. The patient has enlarged prostate. 6. Lymph node adenopathy on CT scan of the abdomen and pelvis and leukocytosis, status post excisional lymph node biopsy as mentioned above. 7. Electrolyte disorder, corrected. 8. Baseline hypertension, dyslipidemia, hypothyroidism, enlarged prostate. SUMMARY: This patient is a 75-year-old male, came to the hospital with leukocytosis, consistent with sepsis infection, pneumonia, and acute exacerbation of chronic obstructive pulmonary disease. The patient was treated with antibiotics and nebulizer treatment. He then went into paroxysmal atrial fibrillation. The patient was given amiodarone and he converted to normal sinus rhythm. The patient also with normal ejection fraction of 55%. The patient was given diuresis due to the congestive heart failure, but he did not require at this time because his atrial fibrillation had now converted to normal sinus rhythm. Of note, no anticoagulation needed at this time. The patient is otherwise stable while his hospitalization, continued with antibiotic treatment. He had an ultrasound-guided lymph node biopsy, but that was inconclusive, therefore, the patient underwent excisional lymph node biopsy done by Dr. Vicente Lara. Procedure was done on June 14, 2020. It is stable. MARGOT drain in place has now removed. Leukocytosis, most likely possibly reactive versus chronic versus infection, but it is improving. It is now went down to 18,200. Hemoglobin and hematocrit are stable as well. There is no sign of bleeding. The patient is otherwise stable. No further workup at this time. He is ambulatory. He may require oxygen because of his pulmonary hyperinflation with COPD. He will be evaluated for oxygen support and if needed will be set up. Home health will also be arranged for the patient to go home as well. Monreal catheter in place. The patient will need to have urodynamic study with Dr. Martin Salgado as an outpatient. Therefore, the patient will be going home with a Monreal catheter at this time. The patient is otherwise stable. He will resume his home medication, mostly with some adjustment on the new prescription for the patient to go home as follows. Keflex 500 mg t.i.d. for 5 days, amiodarone 200 mg b.i.d., Proscar 5 mg daily, magnesium oxide 400 mg b.i.d., Flomax 0.4 mg q.p.m., Tylenol No. 3 p.r.n. for pain, DuoNeb q.6 hours as needed, budesonide nebulizer b.i.d. as needed. The patient is otherwise stable. He is anxious to go home and I agreed after all the set up for home health, oxygen support, and also nebulizer if he is able to get from his insurance approval. Otherwise, I gave the patient prescription. The patient should be able to go home today. I did discuss the patient's discharge planning with the patient's daughter, Ansley mitchell. Her phone #[phone]. The patient will be discharged home today upon our arrangement was made. The patient is stable. MD MELISSA Pineda/TIFFANIE /[id number]
== END 2020-06-17 12:52 | disposition home health service (06) | DRG 853 ==
LOC: ER 09:01 → ERHOLD 10:04 → MED/SURG2 13:39 → ICU 06-07 17:08 → MED/SURG2 06-09 15:40
PROVIDERS: ADMIT Internal Medicine; ATTEND Internal Medicine
PROC: 07B53ZX Excision of Right Axillary Lymphatic, Percutaneous Approach, Diagnostic (ICD-10-PCS; 2020-06-10)
PROC: 07B50ZX Excision of Right Axillary Lymphatic, Open Approach, Diagnostic (ICD-10-PCS; principal; 2020-06-14 10:30)
DX: A41.9 Sepsis, unspecified organism (principal); J18.9 Pneumonia, unspecified organism; R65.21 Severe sepsis with septic shock; J96.91 Respiratory failure, unspecified with hypoxia; J69.0 Pneumonitis due to inhalation of food and vomit; N17.9 Acute kidney failure, unspecified; J44.1 Chronic obstructive pulmonary disease with (acute) exacerbation; N13.8 Other obstructive and reflux uropathy; N39.0 Urinary tract infection, site not specified; I48.0 Paroxysmal atrial fibrillation; Z88.8 Allergy status to other drugs, medicaments and biological substances; E87.6 Hypokalemia; E11.42 Type 2 diabetes mellitus with diabetic polyneuropathy; D64.9 Anemia, unspecified; E78.5 Hyperlipidemia, unspecified; K21.9 Gastro-esophageal reflux disease without esophagitis; E03.9 Hypothyroidism, unspecified; M19.90 Unspecified osteoarthritis, unspecified site; Z79.84 Long term (current) use of oral hypoglycemic drugs; Z11.59 Encounter for screening for other viral diseases; R59.0 Localized enlarged lymph nodes; Z96.652 Presence of left artificial knee joint; N40.1 Benign prostatic hyperplasia with lower urinary tract symptoms; R33.8 Other retention of urine; N28.1 Cyst of kidney, acquired; D69.6 Thrombocytopenia, unspecified
CPT/HCPCS: 10005; 36415; 36600; 38505; 70553; 71045; 71250; 74176; 74470; 76700; 78580; 78582; 80048; 80053; 80307; 81001; 82140; 82150; 82232; 82378; 82550; 82553; 82728; 82805; 82948; 83540; 83605; 83615; 83690; 83735; 83880; 84100; 84443; 84466; 84484; 85025; 85610; 85730; 86631; 86738; 87040; 87086; 87390; 87449; 88172; 88173; 88184; 88304; 88305; 88342; 93005; 93306; 93970; 94060; 94640; 96365; 96366; 96372; 97139; 99284; A9540; G0433; G0435; J0456; J0690; J0692; J0696; J1100; J1650; J1940; J2001; J2405; J2543; J2920; J2930; J3010; J3370; J3480; J7030; J7050; U0002

== ENCOUNTER → 2020-11-06 | Day surgery (SDC) | payer OTHER ==
[2020-11-01 11:43] LABS: BASOPHILS # (AUTO) 0.1 (0.0-0.1); BASOPHILS % 0.5 % (0.0-1.0); EOSINOPHILS # (AUTO) 0.4 (0.0-0.4); EOSINOPHILS % 2.7 % (0.0-6.0); HEMATOCRIT 37.6 % (38.2-49.6); HEMOGLOBIN 12.4 g/dL (14.0-18.0); LYMPHOCYTES # (AUTO) 3.5 (1.0-3.2); LYMPHOCYTES % 26.8 % (18.0-39.1); MEAN CORPUSCULAR HEMOGLOBIN 30.5 pg (28-32); MEAN CORPUSCULAR VOLUME 92.6 fL (81-99); MONOCYTES # (AUTO) 1.2 (0.2-0.8); NEUTROPHILS # (AUTO) 7.8 (2.1-6.9); NEUTROPHILS % 60.2 % (38.7-80.0); PLATELET COUNT 375 x10e3/uL (140-360); RED BLOOD COUNT 4.06 x10e6/uL (4.3-5.7); RED CELL DISTRIBUTION WIDTH 14.6 % (11.7-14.4)
[2020-11-01 11:55] LABS: INR 0.96; PARTIAL THROMBOPLASTIN TIME 30.8 seconds (23.8-35.5); PROTHROMBIN TIME 13.3 seconds (11.9-14.5)
[2020-11-01 12:05] LABS: ALBUMIN 3.7 g/dL (3.5-5.0); ALBUMIN/GLOBULIN RATIO 1.1 (0.8-2.0); ANION GAP 11.4 mmol/L (8-16); CREATININE, SERUM 1.29 mg/dL (0.72-1.25); POTASSIUM 4.4 mmol/L (3.5-5.1)
[~2020-11-06] MED LIST changes: +AMIODARONE HCL200 MG PO; +AMLODIPINE BESYL5 MG PO; +ATORVASTATIN CA40 MG PO; +B&O 60MG R/S 60 MG SUPP PR ONE; +BENADRYL25 M1 PO; +BUDESONIDE EC3 MG PO; +CEFEPIME 1GM/NS 0.9% 50 ML 50 ML IV ONE; +CEFTRIAXONE SOD 1 GM/NS 50 ML 50 ML IV ONE; +FERROUS SULFAT325 MG PO; +FINASTERIDE5 MG PO; +FLOMAX0.4 MG PO; +GABAPENTIN600 MG; +GENTAMICIN 80MG/NS 100 ML 200 ML IV ONE; +IOPAMIDOL 300MG/ML 50ML INFUS..BTL IV ONE; +IPRATROPIU0.2 MG/1 M NEB; +LACTULOSE10 GM PO; +LEVOTHYROXINE150 MCG PO; +LIDOCAINE HCL 2% LOCAL INJ 5 ML SDV VIAL INJ ONE; +LYRICA50 MG PO; +NORCO 5-325 TA1 EACH PO; +OMEPRAZOLE40 MG PO; +PROPOFOL IV EMULSION 10 MG/ML 20 ML VIAL ONE; +SEVOFLURANE INHAL SOLN 250 ML PEN BTL ONE; +ULTRAM 50MG50 MG PO; +VITAMIN D3250 MC1 PO
[2020-11-06 11:55] VITALS: BP 123/63
== END | disposition home or self-care (01) ==
LOC: OR 09:17
PROVIDERS: ATTEND Urology
DX: N40.1 Benign prostatic hyperplasia with lower urinary tract symptoms (principal); N13.8 Other obstructive and reflux uropathy; N39.0 Urinary tract infection, site not specified; N32.89 Other specified disorders of bladder; R00.1 Bradycardia, unspecified; I45.10 Unspecified right bundle-branch block; E11.9 Type 2 diabetes mellitus without complications; I10 Essential (primary) hypertension; I48.91 Unspecified atrial fibrillation; K21.9 Gastro-esophageal reflux disease without esophagitis; E03.9 Hypothyroidism, unspecified; E78.5 Hyperlipidemia, unspecified; J44.9 Chronic obstructive pulmonary disease, unspecified; M19.90 Unspecified osteoarthritis, unspecified site; Z88.1 Allergy status to other antibiotic agents; Z01.810 Encounter for preprocedural cardiovascular examination; Z01.812 Encounter for preprocedural laboratory examination; Z01.818 Encounter for other preprocedural examination; Z20.822 Contact with and (suspected) exposure to COVID-19; Z79.84 Long term (current) use of oral hypoglycemic drugs; Z87.891 Personal history of nicotine dependence
CPT/HCPCS: 52005; C9740; 36415; 71046; 74420; 80053; 82948; 85025; 85610; 85730; 93005; C1758; J0692; J0696; J1580; J2001; L8699; U0002

== ENCOUNTER → 2022-01-29 | Day surgery (SDC) | payer OTHER ==
[2022-01-26 15:49] LABS: BASOPHILS # (AUTO) 0.1 (0.0-0.1); BASOPHILS % 0.5 % (0.0-1.0); EOSINOPHILS # (AUTO) 0.7 (0.0-0.4); EOSINOPHILS % 6.5 % (0.0-6.0); HEMOGLOBIN 12.5 g/dL (14.0-18.0); LYMPHOCYTES # (AUTO) 2.9 (1.0-3.2); MEAN CORPUSCULAR HEMOGLOBIN 31.5 pg (28-32); MEAN CORPUSCULAR HGB CONC 32.9 g/dL (31-35); MEAN CORPUSCULAR VOLUME 95.7 fL (81-99); MONOCYTES # (AUTO) 1.2 (0.2-0.8); MONOCYTES % 10.4 % (4.4-11.3); NEUTROPHILS # (AUTO) 6.2 (2.1-6.9); PLATELET COUNT 295 x10e3/uL (140-360); RED BLOOD COUNT 3.97 x10e6/uL (4.3-5.7); RED CELL DISTRIBUTION WIDTH 14.2 % (11.7-14.4)
[2022-01-26 16:05] LABS: ANION GAP 12.6 mmol/L (8-16); CALCIUM 8.5 mg/dL (8.4-10.2); CREATININE, SERUM 1.41 mg/dL (0.72-1.25); POTASSIUM 4.6 mmol/L (3.5-5.1)
[~2022-01-29] MED LIST changes: +AMBIEN10 MG PO; +ASPIRIN81 MG PO; -B&O 60MG R/S 60 MG SUPP PR ONE; +BALANCED SALT SOLN (OPTH) 15 ML BTL IO ONE; +BUDESONIDE0.25 MG/2 NEB; +BUPIVACAINE HC 0.75% PF 10ML VIAL INJ ONE; -CEFEPIME 1GM/NS 0.9% 50 ML 50 ML IV ONE; -CEFTRIAXONE SOD 1 GM/NS 50 ML 50 ML IV ONE; +CYCLOPENTOLATE HCL 2% OPTH SOLN 2 ML BTL OP ONE; +EPINEPHRINE HCL 1:1000 1ML 1 MG/ML AMP ONE; +FENTANYL CITRATE/PF 100MCG/2 ML INJ ONE; +GATIFLOXACIN(OPTH) 5 ML LIQD ONE; -GENTAMICIN 80MG/NS 100 ML 200 ML IV ONE; -IOPAMIDOL 300MG/ML 50ML INFUS..BTL IV ONE; +LIDOCAINE 2% /EPINEPHRINE 20 ML SDV INJ ONE; -LIDOCAINE HCL 2% LOCAL INJ 5 ML SDV VIAL INJ ONE; +LIDOCAINE HCL-PF 4% 40 MG/1 ML 5ML AMP ONE; +MIDAZOLAM HCL 2 MG/2 ML VIAL ONE; +ONDANSETRON ODT4 MG PO; +PHENYLEPHRINE HCL 2 ML DROPS ONE; +POVIDONE IODINE 0.05% 0.05 % ML PO ONE; +POVIDONE IODINE 5% (OPTH) 30 ML BTL ONE; +SERTRALINE HCL50 MG PO; -SEVOFLURANE INHAL SOLN 250 ML PEN BTL ONE; +TOBRAMYCIN/DEXAMETHASONE(OPTH) 3.5 GM TUBE ONE
[2022-01-29 10:30] VITALS: BP 123/63
== END | disposition home or self-care (01) ==
LOC: OR 07:23
PROVIDERS: ATTEND Ophthalmology
DX: H25.11 Age-related nuclear cataract, right eye (principal); G47.33 Obstructive sleep apnea (adult) (pediatric); J44.9 Chronic obstructive pulmonary disease, unspecified; E03.9 Hypothyroidism, unspecified; I45.10 Unspecified right bundle-branch block; E11.22 Type 2 diabetes mellitus with diabetic chronic kidney disease; I12.9 Hypertensive chronic kidney disease with stage 1 through stage 4 chronic kidney disease, or unspecified chronic kidney disease; N18.9 Chronic kidney disease, unspecified; N40.0 Benign prostatic hyperplasia without lower urinary tract symptoms; F17.210 Nicotine dependence, cigarettes, uncomplicated; Z88.2 Allergy status to sulfonamides; Z01.810 Encounter for preprocedural cardiovascular examination; Z01.812 Encounter for preprocedural laboratory examination; Z20.822 Contact with and (suspected) exposure to COVID-19; Z79.82 Long term (current) use of aspirin; Z79.84 Long term (current) use of oral hypoglycemic drugs; Z79.899 Other long term (current) drug therapy
CPT/HCPCS: 36415; 80048; 82948; 85025; 93005; J0171; J2001; J2250; J3010; U0002; V2632

== ENCOUNTER → 2023-08-11 | Outpatient (REF) | payer MEDICARE ==
[~2023-08-11] MED LIST changes: -BALANCED SALT SOLN (OPTH) 15 ML BTL IO ONE; -BUPIVACAINE HC 0.75% PF 10ML VIAL INJ ONE; -CYCLOPENTOLATE HCL 2% OPTH SOLN 2 ML BTL OP ONE; -EPINEPHRINE HCL 1:1000 1ML 1 MG/ML AMP ONE; -FENTANYL CITRATE/PF 100MCG/2 ML INJ ONE; -GATIFLOXACIN(OPTH) 5 ML LIQD ONE; -LIDOCAINE 2% /EPINEPHRINE 20 ML SDV INJ ONE; -LIDOCAINE HCL-PF 4% 40 MG/1 ML 5ML AMP ONE; -MIDAZOLAM HCL 2 MG/2 ML VIAL ONE; -PHENYLEPHRINE HCL 2 ML DROPS ONE; -POVIDONE IODINE 0.05% 0.05 % ML PO ONE; -POVIDONE IODINE 5% (OPTH) 30 ML BTL ONE; -PROPOFOL IV EMULSION 10 MG/ML 20 ML VIAL ONE; -TOBRAMYCIN/DEXAMETHASONE(OPTH) 3.5 GM TUBE ONE
== END ==
LOC: RAD 11:04
PROVIDERS: ATTEND Internal Medicine
DX: J44.0 Chronic obstructive pulmonary disease with (acute) lower respiratory infection (principal)
CPT/HCPCS: 71046